=== PATIENT | female | born 1945 | race Caucasian/White ===

== ENCOUNTER 2016-04-12 06:17 | Inpatient (IN) ==
[2016-04-12] MEDS ORDERED: Ringers Solution, Lactated 1,000 ML IVC SCH ×2 (06:45→09:45)
--- NOTE | 2016-04-12 07:15 | Anesthesia Evaluation PreOp ---
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 knee scope,) : No Alcohol Use: none Drug use: none Medications and Allergies Apremilast [Otezla] 30 mg PO DAILY 04/12/16 [History] Aspirin 325 mg PO DAILY 04/12/16 [History] Cyclobenzaprine HCl 10 mg PO TID PRN 04/12/16 [History] Flaxseed Oil [[place]-3 Flaxseed Oil] 1,000 mg PO DAILY 04/12/16 [History] Fluticasone Propionate Nasal [Flonase] 2 spr NS DAILY PRN 04/12/16 [History] Lactobacillus Combination No.8 [Adult Probiotic] 1 cap PO DAILY 04/12/16 [ History] Metoprolol Succinate [Toprol Xl] 50 mg PO DAILY 04/12/16 [History] Multivitamin [Multi-Day Vitamins] 1 each PO DAILY 04/12/16 [History] Oxygen 2 l NS DAILY 04/12/16 [History] Soy Isofl/Blk Coh/Gr Tea/Yerba [[employer] Caplet] 1 each PO DAILY [History] Tramadol HCl [Tramadol HCl] 50 mg PO Q6H PRN 04/12/16 [History] Allergies Amoxicillin [From Augmentin] Allergy (Verified 04/12/16 07:16) Vomiting clavulanic acid [From Augmentin] Allergy (Verified 04/12/16 07:16) Vomiting Erythromycin Base Allergy (Verified 04/12/16 07:16) See Comments chemically induced hepatitis albuterol Adverse Reaction (Verified 04/12/16 07:16) heart racing simvastatin Adverse Reaction (Verified 04/12/16 07:16) Muscle Pain tiotropium [From Spiriva with HandiHaler] Adverse Reaction (Verified 04/12/16 07 :16) heart racing - Meds/Allergy Pre-op Review Medications Reviewed: Yes Allergies Reviewed: Yes Beta Blockers on Current Med List: Yes If Beta Blockers taken, Date/Time (Last Dose taken): @ 05:45 Anesthesia Results - Labs Laboratory Tests 12/18/13 07/29/14 04/05/16 09:16 Unknown 11:10 WBC 21.7 H Hgb 12.2 Hct 39.2 Plt Count 365 Sodium Potassium Chloride Carbon Dioxide BUN POC Creatinine 0.70 Hemoglobin A1c 5.9 04/05/16 11:10 WBC Hgb Hct Plt Count Sodium 138 Potassium 3.3 L Chloride 100 Carbon Dioxide 25 BUN 14 POC Creatinine Hemoglobin A1c Stress 04/02/2016 EF- 70% No iscemia Echo 02/24/12 EF-55-60% No valvular dx No pulm. 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
[2016-04-12] MEDS ORDERED: Levalbuterol Neb 1.25 MG/3 ML AER ONE (07:17)
[2016-04-12] MEDS ORDERED: Clindamycin 900 MG/50 ML 900 MG/50 ML IV.SOLN IVPB ONE (07:29)
[2016-04-12] MEDS ORDERED: *HR* Midazolam HCl 2 MG/2 ML VIAL ONE (07:57)
[2016-04-12] MEDS ORDERED: *HR* Succinylcholine 200 MG/10 ML VIAL IVP ONE (07:57)
[2016-04-12] MEDS ORDERED: *HR* Phenylephrine 10 MG/ML VIAL ONE (07:57)
[2016-04-12] MEDS ORDERED: *HR* FentaNYL (PF) 100 MCG/2 ML VIAL ONE (07:57)
[2016-04-12] MEDS ORDERED: Ondansetron 4 MG/2 ML VIAL ONE (07:57)
[2016-04-12] MEDS ORDERED: *HR* Propofol 200 MG/20 ML VIAL IVP ONE (07:57)
[2016-04-12] MEDS ORDERED: Lidocaine -MPF 4% 5 ML AMPUL ONE (07:57)
[2016-04-12] MEDS ORDERED: Lidocaine -MPF 2% 2 ML VIAL ONE ×2 (07:57)
[2016-04-12] MEDS ORDERED: *HR* Rocuronium Bromide 50 MG/5 ML VIAL ONE ×2 (07:57→10:49)
[2016-04-12] MEDS ORDERED: Dexamethasone 4 MG/ML VIAL ONE (07:57)
--- NOTE | 2016-04-12 08:27 | History & Physical Report ---
Date of Encounter: 04/12/16 Time of Encounter: 08:25 24 Hour HP Update - Instructions Instructions: If the History and Physical is less than 30 days old and was completed prior to A.M. admission and or procedure and has NOT been updated on calendar day of procedure please complete this update prior to performing procedure. - Update Patient reports changes in Medical Condition: No Changes in assessment/condition: No Changes in Medication: No Preop tests/diagnostics Reviewed: Yes Surgery Remains Indicated: Yes Consent for Planned Operative Procedure(s) Verified: Yes - Pre-Operative Checklist Preoperative Checklist Indicated: Yes Prophylactic Antibiotic Ordered: Yes Home Medications Include Beta Sen: Yes Beta Sen Taken Today (Day of Surgery): Yes Beta Sen Taken Yesterday (Day Prior to Surgery): Yes Is VTE Prophylaxis Indicated?: Yes
[2016-04-12] MEDS ORDERED: Lacri-Lube 3.5 GM TUBE ONE (08:31)
[2016-04-12] MEDS ORDERED: Bupivacaine/EPI 1:200k 0.25%PF 10 ML VIAL INFILT ONE (08:43)
[2016-04-12] MEDS ORDERED: Lidocaine/EPI 1:100k 1% 20 ML VIAL ONE (08:43)
[2016-04-12] MEDS ORDERED: *HR* Promethazine 25 MG/ML VIAL IVP PRN (09:43)
[2016-04-12] MEDS ORDERED: *HR* HYDROmorphone (PF) 1 MG/ML SYRINGE IVP PRN (09:43)
[2016-04-12] MEDS ORDERED: Ondansetron 4 MG/2 ML VIAL IVP ONE (09:43)
[2016-04-12] MEDS ORDERED: Levalbuterol Neb 1.25 MG/3 ML IH SCH (10:00)
[2016-04-12] MEDS ORDERED: *HR* HYDROmorphone 2 MG/ML SYRINGE ONE (11:55)
--- NOTE | 2016-04-12 12:18 | OB/GYN Procedure Note ---
OB-GRAIN BLENDER: Procedure - Diagnosis Date of procedure: 04/12/16 Pre-op diagnosis: pelvic prolapse with voiding dysfunction - Procedure Procedure: Attempted robotic sacro converted to open sacrocolpopexy, SOBIA, rectocele Surgeon: Danilo Card Medical Lab Scientist: Nickie Faria Anesthesia Type: General Estimated blood loss (cc): 50 Fluids: crystalloid Procedure Complications: none Specimens collected: none Disposition: PACU Findings: Dense pelvic adhesions Narrative: Patient is 70-year-old female grossly worsening pelvic prolapse causing discomfort as well as voiding dysfunction. His the problems she is having she does desire definitive surgical management and has signed appropriate consent. She was aware of operative risks. She previously tried pessary but had intolerance to Description procedure: Patient was taken to the operating room where general anesthesia was administered and she was prepped and draped in usual sterile fashion. Senior catheter was placed to drain bladder. Degree cystocele and second-degree rectocele with apical vaginal prolapse was noted. 12 mm incision was placed above the umbilicus and 12 mm trochars introduced. Patient was placed in steep Trendelenburg position. A second 12 mm title i assistant port was placed in the right quadrant. 8 mm trochar was placed 8 cm right umbilicus. another 8 mm trochars 8 cm to the left left of the umbilicus and another 8 cm lateral to this and the third 8 mm trocar was placed. The robot was docked using camera and all 3 arms. It was noted there were adhesions between omentum and anterior abdominal wall were quite thin and were taken down easily. This point we tried to gain access to the sacral promontory. There were adhesions between the bowel and the right pelvic sidewall. Because the adhesions was unable to visualize the sacral promontory. Approximately 50 minutes was taken trying to take the adhesions down the ureter on the right was identified. We were unable to make adequate progress and I did not feel that procedure can be safely completed this way therefore decision was made to proceed with laparotomy. Trochars removed and incisions were closed. Scalpel was used to make a Pfannenstiel skin incision was sharply taken down to the fascia which was incised in midline and incision was extended bilaterally. Peritoneum was entered sharply. A large Sarah retractor was placed and the bowel packed out of the operative field. There were adhesions to the bowel and the vaginal cuff these were easily taken down once all the adhesions were taken down and opened the peritoneum over the sacral promontory and the medial longitudinal ligament was identified.2 0 [place] sutures were placed in the medial longitudinal ligament. These were tagged for later usage. Colpassist device was used to manipulate the vagina. The uterus had previously been removed that had the cervix tubes and ovaries. I was able to open that peritoneum and apex of the vagina. Is able to dissect down approximately 4 cm anteriorly on the vagina and 5 cm posteriorly. The [employer] Ypsilon Y mesh was affixed anteriorly and posteriorly to the vaginal cuff with several [place] sutures. The mesh was cut to fit. Detail of the mesh was then taken up to the 2 previously placed 0 [place] sutures in the sacrum. These sutures were tied down vaginal exam was performed showing excellent support. The mesh was retroperitonealized with a running 3-0 Vicryl suture. Irrigation was performed hemostasis was ensured. This point the fascia was closed with 0 loop PDS suture. Again irrigation was performed hemostasis was ensured skin edges were approximated with ladi. Vaginal exam was still performed. This point showed excellent apical support and reduction of the cystocele however rectus it was still present. Check to the posterior fourchette with 1% lidocaine with epinephrine and made a lorenzo-shaped incision. An injected submucosally along the posterior vaginal wall. Metzenbaum scissors were used to undermine the vaginal mucosa and a vertical incision was made. I was able to dissect up to the rectovaginal fascia bilaterally and using several interrupted 2-0 Vicryl sutures was able to reapproximate the rectovaginal fascia from the left to right side. Excess vaginal mucosa was removed and the vagina was reapproximated with 3-0 Vicryl. Hemostasis was ensured. All sponge and instruments counts are correct patient taken recovery room good condition.
--- NOTE | 2016-04-12 12:47 | Anesthesia Evaluation Post Op ---
Date of Encounter: 04/12/16 Time of Encounter: 12:46 - Vital Signs Vital Signs: vss - Lungs Lungs: Clear Ascult./Percussion - Airway Airway: Non-obstructed - Cardiovascular Regular Rate - Mental Status Mental Status: Asleep with brisk response to light stimulation - Pain Pain Scale used: John (Faces) (tolerable) - Nausea Vomiting Nausea Vomiting: Not Present - Hydration Hydration: Senior catheter - Discharge PostOp Status: Transfer Patient to floor
[2016-04-12] MEDS ORDERED: *HR* HYDROcodone/Acet 5/325 mg TABLET PO PRN (13:13)
[2016-04-12] MEDS ORDERED: Fluticasone Propionate Nasal 50 MCG/SPRAY BOTTLE NS PRN (13:13)
[2016-04-12] MEDS ORDERED: Naloxone 0.4 MG/ML INJ IVP PRN (13:13)
[2016-04-12] MEDS: *HR* HYDROmorphone 2 MG/ML SYRINGE IVP PRN ×2 (13:38→18:22)
[2016-04-12] MEDS ORDERED: traMADol 50 MG TABLET PO PRN ×2 (17:43→17:51)
[2016-04-12] MEDS: D5% in 0.45% NACL 1,000 ML IVC SCH (18:21)
[2016-04-12] MEDS: (Apremilast [Otezla] 30 MG) PO SCH (21:29)
[2016-04-13] MEDS: *HR* HYDROmorphone 2 MG/ML SYRINGE IVP PRN ×2 (00:23→06:15)
[2016-04-13] MEDS: D5% in 0.45% NACL 1,000 ML IVC SCH (02:28)
[2016-04-13 03:55] LABS: Basophils % 0.2 %; Hemoglobin 9.2 g/dL (11.5-15.4); Immature Granulocytes % 0.6 % (0-4); Lymphocytes % 8.1 %; Mean Corpuscular HGB Conc 31.7 g/dL (31.6-35.5); Mean Corpuscular Hemoglobin 29.7 pg (28.0-33.3); Mean Corpuscular Volume 93.5 fL (83.0-100.0); Mean Platelet Volume 12.4 fL (9.4-12.4); Monocytes # 3.8 K/mcL (0.0-1.3); Monocytes % 20.1 %; Neutrophils # 13.5 K/mcL (1.6-8.9); Platelet Count 352 K/mcL (140-400); Red Cell Distribution Width 22.3 % (11.5-14.5)
[2016-04-13 04:03] LABS: Lymphocytes # 1.5 K/mcL (0.6-4.6)
[2016-04-13 04:23] LABS: Anisocytosis 2+ (Not Present)
[2016-04-13 04:24] LABS: Ovalocytes 1+ (Not Present); Poikilocytosis 1+ (Not Present); Schistocytes 1+ (Not Present)
[2016-04-13 04:25] LABS: Platelet Estimate Normal (Normal)
--- NOTE | 2016-04-13 08:49 | OB/GYN Progress Note ---
Date of Encounter: 04/13/16 Time of Encounter: 08:47 - Assessment and Plan (1) Pelvic prolapse Current Visit: Yes Status: Acute Pt POD # 1 s/p attempted robotic sacrocolpopexy followed by laparotomy and SOBIA with sacrocolpopexy. Pt doing well post op. C/o incisional pain. Qualifiers: Cystocele location: midline Qualified Code(s): N81.11 - Cystocele, midline (2) Postoperative anemia Current Visit: Yes Status: Acute No evidence of active bleeding. Will recheck h/h in am. Subjective - Subjective Principal diagnosis: s/p sacrocolpopexy and SOBIA Interval history: Pt c/o incision pain and hasn't ambulated much. No n/v and is hungry. No flatus yet. Objective - Vital Signs Latest vital signs: Vital Signs Temp Pulse Resp BP Pulse Ox 04/13/16 07:50 98.5 F 110 12 124/74 96 04/13/16 04:26 98.7 F 97 14 125/79 97 04/13/16 00:42 98.8 F 104 12 115/76 96 04/12/16 20:00 98.4 F 101 18 112/64 97 04/12/16 16:20 98.3 F 94 16 117/70 96 04/12/16 16:10 14 04/12/16 15:00 97.9 F 94 14 101/61 99 04/12/16 14:00 98.3 F 96 14 106/68 95 04/12/16 13:30 98.3 F 92 14 111/67 98 04/12/16 13:00 98.2 F 92 14 118/71 96 04/12/16 12:50 97.6 F 93 14 117/69 94 L 04/12/16 12:40 93 16 113/66 94 L 04/12/16 12:30 96 14 112/66 94 L 04/12/16 12:20 98.5 F 99 12 114/67 100 Intake and Output 04/12/16 04/13/16 04/13/16 23:59 07:59 15:59 Intake Total 50 / 50 1600 / 1600 Output Total 350 / 350 2600 / 2600 Balance -300 / -300 -1000 / -1000 Intake: IV Fluids 1000 / 1000 D5% And 0.45% Nacl 1000 1000 / 1000 Ml Bag 1,000 ML @ 125 mls /hr IVC .Q8H MICHAEL Rx#: [id number] Oral 50 / 50 600 / 600 Output: Catheter 350 / 350 2600 / 2600 - I&O's I&O's: Intake & Output 04/10/16 04/11/16 04/12/16 04/13/16 23:59 23:59 23:59 23:59 Intake Total 100 / 100 1600 / 1600 Output Total 430 / 430 2600 / 2600 Balance -330 / -330 -1000 / -1000 Weight 75.5 kg - Exam Lungs: bilateral: normal Chest: Normal S1, Normal S2 Extremities: Present: normal Abdomen: Present: normal appearance, soft, other (+ BS,) Incision OB: Present: normal, intact - Labs Labs: Abnormal lab results WBC 19.0 K/mcL (4.3-11.1) H 04/13/16 03:44 RBC 3.10 M/mcL (3.82-4.97) L 04/13/16 03:44 Hgb 9.2 g/dL (11.5-15.4) L 04/13/16 03:44 Hct 29.0 % (35.3-44.9) L 04/13/16 03:44 RDW 22.3 % (11.5-14.5) H 04/13/16 03:44 Neutrophils # 13.5 K/mcL (1.6-8.9) H 04/13/16 03:44 Monocytes # 3.8 K/mcL (0.0-1.3) H 04/13/16 03:44 Poikilocytosis 1+ (Not Present) A 04/13/16 03:44 Anisocytosis 2+ (Not Present) A 04/13/16 03:44 Ovalocytes 1+ (Not Present) A 04/13/16 03:44 Schistocytes 1+ (Not Present) A 04/13/16 03:44 Consult Discharge Plan - Plan Referrals: Nick Georges DO [Primary Care Provider] -
[2016-04-13] MEDS ORDERED: Metoprolol XL (24 HR) Succ 50 MG TAB.ER.24H PO SCH ×2 (09:00)
[2016-04-13] MEDS ORDERED: NON-FORMULARY MEDICATION 1 EACH EACH (Oxygen [Oxygen] 2 L) NS SCH (09:00)
[2016-04-13] MEDS: Metoprolol XL (24 HR) Succ 50 MG TAB.ER.24H PO SCH (09:06)
[2016-04-13] MEDS: (Apremilast [Otezla] 30 MG) PO SCH ×2 (09:06→22:01)
[2016-04-13] MEDS: *HR* HYDROmorphone 2 MG TABLET PO PRN ×4 (09:52→23:24)
[2016-04-13] MEDS: Aspirin 325 MG TABLET PO SCH (10:20)
[2016-04-14] MEDS: *HR* HYDROmorphone 2 MG TABLET PO PRN ×5 (04:11→20:46)
[2016-04-14 05:03] LABS: Basophils # 0.1 K/mcL (0.0-0.2); Basophils % 0.3 %; Eosinophils # 0.1 K/mcL (0.0-0.6); Eosinophils % 0.7 %; Hematocrit 28.6 % (35.3-44.9); Hemoglobin 9.2 g/dL (11.5-15.4); Immature Granulocytes % 0.7 % (0-4); Lymphocytes # 2.9 K/mcL (0.6-4.6); Lymphocytes % 14.8 %; Mean Corpuscular HGB Conc 32.2 g/dL (31.6-35.5); Mean Corpuscular Hemoglobin 30.2 pg (28.0-33.3); Mean Corpuscular Volume 93.8 fL (83.0-100.0); Mean Platelet Volume 13.3 fL (9.4-12.4); Monocytes % 15.6 %; Neutrophils # 13.1 K/mcL (1.6-8.9); Platelet Count 369 K/mcL (140-400); Red Blood Count 3.05 M/mcL (3.82-4.97); Red Cell Distribution Width 21.9 % (11.5-14.5); Segmented Neutrophils % 67.9 %
[2016-04-14] MEDS: Metoprolol XL (24 HR) Succ 50 MG TAB.ER.24H PO SCH (07:54)
[2016-04-14] MEDS: Aspirin 325 MG TABLET PO SCH (07:54)
[2016-04-14] MEDS: (Apremilast [Otezla] 30 MG) PO SCH ×2 (07:57→21:01)
--- NOTE | 2016-04-14 14:44 | OB/GYN Progress Note ---
Date of Encounter: 04/14/16 Time of Encounter: 14:42 - Assessment and Plan (1) Pelvic prolapse Current Visit: Yes Status: Acute Pt POD # 2s/p attempted robotic sacrocolpopexy followed by laparotomy and SOBIA with sacrocolpopexy. Pt doing well post op. C/o incisional pain and inabilitly to void. Will increase Dilaudid PO to 2 mg and add Motrin. Encourage ambulation. Qualifiers: Cystocele location: midline Qualified Code(s): N81.11 - Cystocele, midline (2) Postoperative anemia Current Visit: Yes Status: Acute No evidence of active bleeding. H/H is stable (3) Postoperative ileus Current Visit: Yes Status: Acute Pt with active BS, no n/v, will await return of bowel funciton. Encourage ambulationn. Subjective - Subjective Principal diagnosis: s/p laparotomy, sacrocolpopexy and rectocele repair Interval history: Pt still c/o significant incisional pain that is limiting her ability to ambulate. She reports no n/v and has been drinking alot of water. No flatus or BM. Ambulates with assist to BR but still can't void. Objective - Vital Signs Latest vital signs: Vital Signs Temp Pulse Resp BP Pulse Ox 04/14/16 07:50 98.3 F 106 16 121/74 97 04/14/16 04:00 98.5 F 104 18 130/78 97 04/13/16 23:16 99.2 F 106 12 126/69 99 04/13/16 20:18 99.3 F 111 12 141/74 98 Intake and Output 04/13/16 04/14/16 04/14/16 23:59 07:59 15:59 Intake Total 500 / 500 0 / 0 300 / 300 Output Total 1320 / 1320 965 / 965 Balance -820 / -820 -965 / -965 300 / 300 Intake: Oral 500 / 500 0 / 0 300 / 300 Output: Urine 320 / 320 Straight Cath 1000 / 1000 Catheter 965 / 965 Other: Meal Lunch Percent of Meal Consumed 90% Weight 75 kg - I&O's I&O's: Intake & Output 04/11/16 04/12/16 04/13/16 04/14/16 23:59 23:59 23:59 23:59 Intake Total 100 / 100 2100 / 2100 300 / 300 Output Total 430 / 430 5420 / 5420 965 / 965 Balance -330 / -330 -3320 / -3320 -665 / -665 Weight 75.5 kg 75 kg - Exam Lungs: bilateral: normal Chest: Normal S1, Normal S2 Extremities: Present: normal Abdomen: Present: soft, other (appropriate tenderness, incison CDWA) Incision OB: Present: normal, intact - Labs Labs: Abnormal lab results WBC 19.3 K/mcL (4.3-11.1) H 04/14/16 04:29 RBC 3.05 M/mcL (3.82-4.97) L 04/14/16 04:29 Hgb 9.2 g/dL (11.5-15.4) L 04/14/16 04:29 Hct 28.6 % (35.3-44.9) L 04/14/16 04:29 RDW 21.9 % (11.5-14.5) H 04/14/16 04:29 MPV 13.3 fL (9.4-12.4) H 04/14/16 04:29 Neutrophils # 13.1 K/mcL (1.6-8.9) H 04/14/16 04:29 Monocytes # 3.0 K/mcL (0.0-1.3) H 04/14/16 04:29 Poikilocytosis 1+ (Not Present) A 04/13/16 03:44 Anisocytosis 2+ (Not Present) A 04/13/16 03:44 Ovalocytes 1+ (Not Present) A 04/13/16 03:44 Schistocytes 1+ (Not Present) A 04/13/16 03:44 Consult Discharge Plan - Plan Referrals: Nick Georges DO [Primary Care Provider] -
[2016-04-14] MEDS: Ibuprofen 600 MG TABLET PO PRN (18:11)
[2016-04-15] MEDS: Ibuprofen 600 MG TABLET PO PRN ×3 (00:09→20:29)
[2016-04-15] MEDS: Metoprolol XL (24 HR) Succ 50 MG TAB.ER.24H PO SCH (09:16)
[2016-04-15] MEDS: (Apremilast [Otezla] 30 MG) PO SCH ×3 (09:17→20:37)
[2016-04-15] MEDS: Aspirin 325 MG TABLET PO SCH (10:43)
[2016-04-15] MEDS: *HR* HYDROmorphone 2 MG TABLET PO PRN ×3 (12:07→21:01)
[2016-04-15] MEDS: Nitrofurantoin (BID) 100 MG CAPSULE PO SCH (17:19)
--- NOTE | 2016-04-15 17:52 | OB/GYN Progress Note ---
Date of Encounter: 04/15/16 Time of Encounter: 17:50 - Assessment and Plan (1) Pelvic prolapse Current Visit: Yes Status: Acute Pt POD # 3s/p attempted robotic sacrocolpopexy followed by laparotomy and SOBIA with sacrocolpopexy. Pt doing well post op., ileus is resolving with small amt of flatus. Starting to void with slow stream. Qualifiers: Cystocele location: midline Qualified Code(s): N81.11 - Cystocele, midline (2) Postoperative anemia Current Visit: Yes Status: Acute No evidence of active bleeding. H/H is stable (3) Postoperative ileus Current Visit: Yes Status: Acute Pt with active BS, no n/v, will await return of bowel funciton. Encourage ambulationn. Subjective - Subjective Principal diagnosis: s/p exp lap with sacrocolpopexy and post repair Interval history: Still with significant pain, is just this evening starting to void a little bit with slow stream. Has difficulty ambulating without assistance secondary to the pain. Reg diet without flatus. Patient reports: appetite normal Objective - Vital Signs Latest vital signs: Vital Signs Temp Pulse Pulse Resp BP Pulse Ox 04/15/16 16:29 98.2 F 90 16 114/64 98 04/15/16 12:50 98.0 F 104 16 119/75 98 04/15/16 12:14 92 16 04/15/16 09:15 92 04/15/16 08:25 97.6 F 107 16 118/56 96 04/15/16 04:00 97.7 F 95 12 115/66 97 04/15/16 00:14 97.8 F 110 16 132/73 04/14/16 21:45 98.4 F 118 12 117/71 97 04/14/16 21:13 16 Intake and Output 04/15/16 04/15/16 04/15/16 07:59 15:59 23:59 Intake Total 400 / 400 Output Total 500 / 500 400 / 400 Balance -100 / -100 -400 / -400 Intake: Oral 400 / 400 Output: Urine 400 / 400 Catheter 500 / 500 Other: Weight 74.4 kg Patient Weight 04/15/16 23:59 Weight 74.4 kg - I&O's I&O's: Intake & Output 04/12/16 04/13/16 04/14/16 04/15/16 23:59 23:59 23:59 23:59 Intake Total 100 / 100 2100 / 2100 840 / 840 400 / 400 Output Total 430 / 430 5420 / 5420 2565 / 2565 900 / 900 Balance -330 / -330 -3320 / -3320 -1725 / -1725 -500 / -500 Weight 75.5 kg 75 kg 74.4 kg - Exam Lungs: bilateral: normal Chest: Normal S1, Normal S2 Extremities: Present: normal Abdomen: Present: soft, other (pos BS) Incision OB: Present: normal, intact - Labs Labs: Abnormal lab results WBC 19.3 K/mcL (4.3-11.1) H 04/14/16 04:29 RBC 3.05 M/mcL (3.82-4.97) L 04/14/16 04:29 Hgb 9.2 g/dL (11.5-15.4) L 04/14/16 04:29 Hct 28.6 % (35.3-44.9) L 04/14/16 04:29 RDW 21.9 % (11.5-14.5) H 04/14/16 04:29 MPV 13.3 fL (9.4-12.4) H 04/14/16 04:29 Neutrophils # 13.1 K/mcL (1.6-8.9) H 04/14/16 04:29 Monocytes # 3.0 K/mcL (0.0-1.3) H 04/14/16 04:29 Poikilocytosis 1+ (Not Present) A 04/13/16 03:44 Anisocytosis 2+ (Not Present) A 04/13/16 03:44 Ovalocytes 1+ (Not Present) A 04/13/16 03:44 Schistocytes 1+ (Not Present) A 04/13/16 03:44 Consult Discharge Plan - Plan Referrals: Nick Georges DO [Primary Care Provider] -
[2016-04-16] MEDS: *HR* HYDROmorphone 2 MG TABLET PO PRN ×3 (01:11→09:38)
--- NOTE | 2016-04-16 07:38 | Discharge Summary ---
Date of Encounter: 04/16/16 Time of Encounter: 07:39 - Discharge Diagnosis (1) Pelvic prolapse Priority: Primary Status: Acute Comments: Doing well, will d/c home. Qualifiers: Prolapse type: cystocele Cystocele location: midline Qualified Code(s): N81.11 - Cystocele, midline (2) Postoperative anemia Priority: Secondary Status: Resolved (3) Postoperative ileus Priority: Secondary Status: Resolved Code(s): K91.3 - Postprocedural intestinal obstruction - Discharge Medications Prescriptions: HYDROmorphone [Dilaudid] 2 mg PO Q4HR PRN #40 tablet PRN Reason: post op pain HYDROmorphone [Dilaudid] 1 mg IVP Q4HR PRN #40 syringe PRN Reason: post op pain Home Medications: Apremilast [Otezla] 30 mg PO DAILY 04/12/16 [History] Aspirin 325 mg PO DAILY 04/12/16 [History] Cyclobenzaprine HCl 10 mg PO TID PRN 04/12/16 [History] Flaxseed Oil [[place]-3 Flaxseed Oil] 1,000 mg PO DAILY 04/12/16 [History] Fluticasone Propionate Nasal [Flonase] 2 spr NS DAILY PRN 04/12/16 [History] Lactobacillus Combination No.8 [Adult Probiotic] 1 cap PO DAILY 04/12/16 [ History] Metoprolol Succinate [Toprol Xl] 50 mg PO DAILY 04/12/16 [History] Multivitamin [Multi-Day Vitamins] 1 each PO DAILY 04/12/16 [History] Oxygen 2 l NS DAILY 04/12/16 [History] Soy Isofl/Blk Coh/Gr Tea/Yerba [[employer] Caplet] 1 each PO DAILY [History] Tramadol HCl [Tramadol HCl] 50 mg PO Q6H PRN 04/12/16 [History] HYDROmorphone [Dilaudid] 1 mg IVP Q4HR PRN #40 syringe 04/16/16 [Rx] HYDROmorphone [Dilaudid] 2 mg PO Q4HR PRN #40 tablet 04/16/16 [Rx] Allergies/Adverse Reactions: Allergies Amoxicillin [From Augmentin] Allergy (Verified 04/12/16 07:16) Vomiting clavulanic acid [From Augmentin] Allergy (Verified 04/12/16 07:16) Vomiting Erythromycin Base Allergy (Verified 04/12/16 07:16) See Comments chemically induced hepatitis albuterol Adverse Reaction (Verified 04/12/16 07:16) heart racing simvastatin Adverse Reaction (Verified 04/12/16 07:16) Muscle Pain tiotropium [From Spiriva with HandiHaler] Adverse Reaction (Verified 04/12/16 07 :16) heart racing Data Procedures and tests throughout hospitalization: Laboratory Tests 04/13/16 04/14/16 03:44 04:29 WBC 19.0 H 19.3 H RBC 3.10 L 3.05 L Hgb 9.2 L 9.2 L Hct 29.0 L 28.6 L MCV 93.5 93.8 MCH 29.7 30.2 MCHC 31.7 32.2 RDW 22.3 H 21.9 H Plt Count 352 369 MPV 12.4 13.3 H Immature Gran % 0.6 0.7 Seg Neutrophils % 71.0 67.9 Lymphocytes % 8.1 14.8 Monocytes % 20.1 15.6 Eosinophils % 0.0 0.7 Basophils % 0.2 0.3 Neutrophils # 13.5 H 13.1 H Lymphocytes # 1.5 2.9 Monocytes # 3.8 H 3.0 H Eosinophils # 0.0 0.1 Basophils # 0.0 0.1 Platelet Estimate Normal Poikilocytosis 1+ A Anisocytosis 2+ A Ovalocytes 1+ A Schistocytes 1+ A - Impressions Doing well, voiding without difficulty! Taking regular diet with + flatus, strength is better and can now get up on her own to BR. She states she is ready for d/c home. Date of admission: 04/13/16 11:08 Primary care physician: Mingo Mcgee - Patient Status Disposition: Home, Self-Care Condition: Good Overall status at discharge: patient is back to baseline - Discharge Instructions Follow Up With: Danilo Card MD [Partnered Physician] - Additional Instructions: F/u Tue or Tuesday with nurse for staple removal, f/u with me in 2 weeks - Diet and Activity Activity: increase activity as tolerated Diet: advance to your usual diet Hospital Course DOG GROOMER Time Attestation: Total time spent providing and/or coordinating discharge services: Exam - Constitutional Vitals: Temp Pulse Resp BP Pulse Ox 98.0 F 71 12 115/62 97 04/16/16 04:59 04/16/16 04:59 04/16/16 05:12 04/16/16 04:59 04/16/16 04:59 General appearance IM: A&O X 3 - Respiratory Respiratory exam: Present: CTAB - Cardiovascular Cardiovascular exam IM: Present: RRR - GI/Abdominal GI/Abdominal exam IM: normal bowel sounds Incision: normal, intact - Neurological Exam Neurological exam: oriented X3 - VTE Documentation of Mechanical Device: Intermittent pneumatic compression device
[2016-04-16 07:45] VITALS: BP 121/76
[2016-04-16] MEDS: (Apremilast [Otezla] 30 MG) PO SCH (09:39)
[2016-04-16] MEDS: Metoprolol XL (24 HR) Succ 50 MG TAB.ER.24H PO SCH (09:39)
[2016-04-16] MEDS: Nitrofurantoin (BID) 100 MG CAPSULE PO SCH (09:40)
[2016-04-16] MEDS: Aspirin 325 MG TABLET PO SCH (09:40)
== END 2016-04-16 10:47 | disposition home or self-care (01) | DRG 748 ==
LOC: SAMDAY 06:17 → 1NENUOBS 13:12
PROVIDERS: ADMIT Obstetrics & Gynecology; ATTEND Obstetrics & Gynecology

== ENCOUNTER 2018-09-04 20:10 | Inpatient (IN) ==
--- NOTE | 2018-09-04 20:26 | Emergency Department Note ---
Disposition Clinical Impression: Lumbar radiculopathy, Sciatica, Thoracic back pain, H/O kyphoplasty, History of abdominal aortic aneurysm, Anemia Disposition: Still a Patient Referrals: Nick Georges DO [Primary Care Provider] - Forms: ED Satisfaction Letter Time of Disposition: 01:41 General Adult HPI - General Chief complaint: ED Back Pain/Injury Stated complaint: back pain Time Seen by Provider: 09/04/18 20:25 Source: patient, EMS Limitations: no limitations - History of Present Illness HPI Narrative: 72-year-old female reports to the emergency department with concerns for low back pain. She was bending over at her refrigerator and heard a pop and had sudden low back pain. Notably she has multi lumbar compression fractures as well as lower thoracic compression fractures and had recent kyphoplasty. The patient denies falling down. She denies head pain neck pain chest pain shortness breath or abdominal pain. She is not anticoagulated. She reports she has a stable abdominal aortic aneurysm which is not significantly enlarged. She does not describe syncope. The pain she is experiencing is associated with movement in the low back. There is no history of acute bowel or bladder dysfunction. No numbness or weakness in legs or saddle anesthesia. The patient describes sciatica bilaterally. She is been taking her usual oral pain medications which have not been helpful she cannot walk currently. No rashes fevers or any other acute complaint or concern. Pain Scale: 9 - Related Data Home Medications Medication Instructions Recorded Confirmed Apremilast [Otezla] 30 mg PO BID 08/16/18 09/04/18 Aspirin [Lo-Dose Aspirin EC] 81 mg PO DAILY 08/16/18 09/04/18 Bisacodyl [Woman's Laxative] 5 mg PO HS PRN 08/16/18 09/04/18 Cyclobenzaprine HCl 10 mg PO TID PRN 08/16/18 09/04/18 Ipratropium Neb [Atrovent Neb] 0.5 mg IH Q6HR PRN 08/16/18 09/04/18 Lactobacillus Combination No.8 1 cap PO DAILY 08/16/18 09/04/18 [Adult Probiotic] Magnesium 250 mg PO DAILY 08/16/18 09/04/18 Metoprolol Succinate [Toprol Xl] 50 mg PO DAILY 08/16/18 09/04/18 Multivitamin [One Daily] 1 tab PO DAILY 08/16/18 09/04/18 Tramadol HCl [Ultram] 50 mg PO QID PRN 08/16/18 09/04/18 Allergies Allergy/AdvReac Type Severity Reaction Status Date / Time Erythromycin Base Allergy See Verified 08/16/18 13:34 Comments albuterol AdvReac heart Verified 08/16/18 13:34 racing Amoxicillin [From Augmentin] AdvReac Vomiting Verified 08/16/18 13:34 clavulanic acid AdvReac Diarrhea Verified 08/16/18 13:34 [From Augmentin] simvastatin AdvReac Muscle Pain Verified 08/16/18 13:34 Ilriajw-Edi-Blj Reductase AdvReac muscle Verified 08/16/18 13:34 Inhibitor spasms [Statins] tiotropium AdvReac rhinnitis Verified 08/16/18 13:34 [From Spiriva with HandiHaler] All systems ED: reviewed and negative except as stated. Past Medical History - Past Medical History Medical history: Reports: arthritis, COPD, fibromyalgia, GERD, hypertension, thyroid disease, TIA, other Surgical history: Reports: breast surgery, hysterectomy, orthopedic, other, sinus surgery, other Psychiatric history: Reports: depression - Social History Smoking Status: Former smoker Smokeless Tobacco Status: No Alcohol use: Reports: none Drug use: Reports: none Physical Exam - General Limitations: no limitations General appearance: alert, in no apparent distress - Head Head exam: atraumatic, normocephalic, normal inspection - Eye Eye exam: Present: normal appearance, PERRL, EOMI - ENT ENT exam: normal exam, normal oropharynx, mucous membranes moist, TM's normal bilaterally, normal external ear exam - Neck Neck exam: Present: full ROM, trachea midline - Chest Chest inspection: Present: symmetric chest wall rise. Absent: tenderness - Respiratory Respiratory exam: Present: normal lung sounds bilaterally. Absent: respiratory distress, prolonged expiratory phase - Cardiovascular Cardiovascular exam: Present: regular rate, normal rhythm, normal heart sounds - Abdominal Exam Abdominal exam: Present: soft, Non-Tender, normal bowel sounds. Absent: tenderness, distention, guarding, rebound, rigidity - Extremities Exam Extremities exam: Present: normal inspection, full ROM, normal capillary refill. Absent: tenderness, pedal edema, joint swelling, calf tenderness - Expanded Lower Extremity Exam Neurovascular/Tendon exam: Present: normal capillary refill. Absent: motor deficit, sensory deficit, tendon deficit, extremity cold to touch, pallor - Back Exam Back exam: Present: normal inspection, full ROM, vertebral tenderness, straight leg raise (R), straight leg raise (L), other (Postsurgical wounds clean dry in tact without fluctuance redness swelling crepitance of the skin no blackening or discharge.). Absent: tenderness, CVA tenderness (R), CVA tenderness (L) - Neurological Exam Neurological exam: Present: alert, oriented X3 - Psychiatric Psychiatric exam: Present: normal affect, normal mood - Skin Skin exam: Present: warm, dry, intact, normal color Course Vital Signs Temperature 98.8 F 09/04/18 20:14 Pulse Rate 90 09/04/18 20:14 Respiratory Rate 18 09/04/18 20:14 Blood Pressure 108/86 09/04/18 20:14 O2 Sat by Pulse Oximetry 99 09/04/18 20:14 Temperature 98.8 F 09/04/18 20:14 Pulse Rate 90 09/05/18 01:10 Respiratory Rate 18 09/05/18 01:10 Blood Pressure 116/58 09/05/18 01:10 O2 Sat by Pulse Oximetry 98 09/05/18 01:10 Oxygen Delivery Oxygen Delivery Nasal Cannula Medical Decision Making - MDM Narrative Medical decision making narrative: The patient has a history of thoracic and lumbar compression fractures with recent kyphoplasty. She has been taking her home medication but is had persistent pain is now unable to walk. CT scan of her thoracic and lumbar: Reveal no acute fracture. Basic laboratory studies were obtained and show anemia which appears to be chronic. The patient's inflammatory markers are essentially negative. The patient denies acute neurologic changes. There is no history of bowel or bladder dysfunction acute which the legs or saddle anesthesia she declines rectal examination. The patient has known history of aortic abdominal aneurysm. She describes back pain and states that her mirror painter and physician performing kyphoplasty felt it was unusual for her to have persistent pain after her treatment. At this point she appears to have failed outpatient pain management and is currently unable to walk. As a precaution CTA abdomen has been ordered to evaluate further to ensure no retroperitoneal or intra-abdominal component responsible for her back pain. She is been treated with Dilaudid and emergency department as well as fentanyl and remained stable. I suspect the patient will require hospitalization for pain management and possible rehabilitation. Shift change, I discussed the case with Dr. Ceja who will assume care and determine final diagnosis and disposition. - Lab Data Lab results reviewed: Yes I reviewed the patient's lab results. Result diagrams: 09/04/18 23:01 09/04/18 23:01 Lab Results 09/04/18 09/04/18 09/04/18 Range/Units 23:01 23:01 23:01 WBC 11.3 H (4.3-11.1) K/mcL RBC 3.12 L (3.82-4.97) M/mcL Hgb 9.2 L (11.5-15.4) g/dL Hct 29.4 L (35.3-44.9) % MCV 94.2 (83.0-100.0) fL MCH 29.5 (28.0-33.3) pg MCHC 31.3 L (31.6-35.5) g/dL RDW 22.9 H (11.5-14.5) % Plt Count 434 H (140-400) K/mcL MPV 13.2 H (9.4-12.4) fL Immature Gran % 0.4 (0-4) % Seg Neutrophils % 58.4 % Lymphocytes % 22.3 % Monocytes % 14.6 % Eosinophils % 3.4 % Basophils % 0.9 % Neutrophils # 6.6 (1.6-8.9) K/mcL Lymphocytes # 2.5 (0.6-4.6) K/mcL Monocytes # 1.7 H (0.0-1.3) K/mcL Eosinophils # 0.4 (0.0-0.6) K/mcL Basophils # 0.1 (0.0-0.2) K/mcL Sodium 139 (136-145) mEq/L Potassium 3.8 (3.5-5.1) mEq/L Chloride 105 (98-107) mEq/L Carbon Dioxide 28 (23-29) mEq/L BUN 10 (8-23) mg/dL Creatinine 0.49 L (0.60-1.20) mg/dL Est GFR ( Amer) > 60 (> 60) Est GFR (Non-Af Amer) > 60 (> 60) BUN/Creatinine Ratio 20 (6-26) Glucose 109 H (70-105) mg/dL Calculated Osmolality 288 (280-300) Calcium 9.4 (8.6-10.3) mg/dL Total Bilirubin 0.7 (0.3-1.0) mg/dL Direct Bilirubin 0.1 (0.0-0.2) mg/dL Indirect Bilirubin 0.6 (0.0-1.2) mg/dL AST 18 (13-39) Units/L ALT 9 (7-52) Units/L Alkaline Phosphatase 110 H (34-104) Units/L C-Reactive Protein < 5 (Less than 10) mg/L Serum Total Protein 6.8 (6.4-8.9) g/dL Albumin 4.0 (3.5-5.7) g/dL Globulin 2.8 (2.4-3.5) g/dL Albumin/Globulin Ratio 1.4 (1.1-2.2) Lipase 6 L (11-82) Units/L - Radiology Data Radiology results reviewed: Yes I reviewed the patient's radiology results.
[2018-09-04] MEDS ORDERED: *HR* HYDROmorphone (PF) 1 MG/ML SYRINGE IM ONE (20:53)
[2018-09-04] MEDS ORDERED: Ondansetron ODT 4 MG TAB.RAPDIS SL ONE (20:54)
[2018-09-04] MEDS ORDERED: Isovue-370 500 ML BOTTLE IVP ONE (22:49)
[2018-09-04] MEDS ORDERED: methylPREDNISolone 125 MG/2 ML VIAL IVP ONE (22:50)
[2018-09-04] MEDS ORDERED: 0.9 % Sodium Chloride 1,000 ML IVC ONE (22:51)
[2018-09-04 23:24] LABS: Basophils # 0.1 K/mcL (0.0-0.2); Basophils % 0.9 %; Eosinophils # 0.4 K/mcL (0.0-0.6); Eosinophils % 3.4 %; Hematocrit 29.4 % (35.3-44.9); Hemoglobin 9.2 g/dL (11.5-15.4); Immature Granulocytes % 0.4 % (0-4); Lymphocytes # 2.5 K/mcL (0.6-4.6); Lymphocytes % 22.3 %; Mean Corpuscular HGB Conc 31.3 g/dL (31.6-35.5); Mean Corpuscular Hemoglobin 29.5 pg (28.0-33.3); Mean Corpuscular Volume 94.2 fL (83.0-100.0); Mean Platelet Volume 13.2 fL (9.4-12.4); Monocytes # 1.7 K/mcL (0.0-1.3); Monocytes % 14.6 %; Neutrophils # 6.6 K/mcL (1.6-8.9); Platelet Count 434 K/mcL (140-400); Red Blood Count 3.12 M/mcL (3.82-4.97); Red Cell Distribution Width 22.9 % (11.5-14.5); Segmented Neutrophils % 58.4 %; White Blood Count 11.3 K/mcL (4.3-11.1)
[2018-09-04 23:44] LABS: Alanine Aminotransferase 9 Units/L (7-52); Albumin/Globulin Ratio 1.4 (1.1-2.2); Alkaline Phosphatase 110 Units/L (34-104); Aspartate Amino Transferase 18 Units/L (13-39); BUN/Creatinine Ratio 20 (6-26); Bilirubin,Direct 0.1 mg/dL (0.0-0.2); Bilirubin,Indirect 0.6 mg/dL (0.0-1.2); Bilirubin,Total 0.7 mg/dL (0.3-1.0); Blood Urea Nitrogen 10 mg/dL (8-23); Calcium 9.4 mg/dL (8.6-10.3); Carbon Dioxide 28 mEq/L (23-29); Chloride 105 mEq/L (98-107); Globulin 2.8 g/dL (2.4-3.5); Glucose 109 mg/dL (70-105); Lipase 6 Units/L (11-82); Osmolality,Calculated 288 (280-300); Potassium 3.8 mEq/L (3.5-5.1); Sodium 139 mEq/L (136-145); Total Protein 6.8 g/dL (6.4-8.9); eGFR For African Americans > 60 (> 60); eGFR For Non-African Americans > 60 (> 60)
[2018-09-05] MEDS ORDERED: *HR* FentaNYL (PF) 100 MCG/2 ML VIAL IVP ONE (01:15)
[2018-09-05 02:24] LABS: Bilirubin,Urine Negative (Negative); Blood,Urine Negative (Negative); Clarity,Urine Clear (Clear); Color,Urine Yellow (Yellow); Glucose,Urine (UA) Normal (Normal); Ketones,Urine Negative (Negative); Leukocyte Esterase,Urine Negative (Negative); Nitrite,Urine Negative (Negative); Protein,Urine Negative (Neg-Trace); Specific Gravity,Urine 1.011 (1.010-1.025); Urobilinogen,Urine Normal (Normal)
[2018-09-05] MEDS ORDERED: *HR* HYDROmorphone (PF) 1 MG/ML SYRINGE IVP ONE (05:37)
[2018-09-05] MEDS ORDERED: *HR* HYDROmorphone (PF) 1 MG/ML SYRINGE IVP PRN (08:41)
[2018-09-05] MEDS ORDERED: Ipratropium Neb 0.5 MG NEBULIZER IH PRN (08:51)
--- NOTE | 2018-09-05 08:53 | Internal Med History&Physical ---
<Mindy Llanos - Last Filed: 09/05/18 08:47> Date of Encounter: 09/05/18 Time of Encounter: 08:47 Internal Medicine - H&P: HPI Chief complaint: back pain Admitted From: Emergency Dept Plans for Post Hospital Care: Home History of present illness: Ms. Case is a 72 year old female with PMHx of HTN, pulmonary fibrosis, TIA, HLD, COPD, psoriatic arthritis, osteoarthritis, fiibromyalgia, osteoporosis, history of compression fractures with recent kyphoplasty last month. Patient was at home in her usual state last night when she went to the fridge and bent over to get something and felt a shooting pain in her back. She states this pain was so bad that she could barely walk or move. When this happened, she tried to see if the pain would get better, but it continued to get worse. She states her pain is as bad as 10/10 and is located in her lower lumbar area. She denies bowel or bladder incontinence. she denies nausea, vomiting, diarrhea, fevers, chills, chest pain, shortness of breath, hematochezia, melena, hematuria. Past Med Surg Social Fam HX - Past Medical History Medical history: arthritis, COPD, fibromyalgia, GERD, hypertension, thyroid disease, TIA, other Additional medical history: irregular heart rate, intersitial fibrosis, mild pulmonary HTN, emphysema, psoriasis, PACs, home o2, Psychiatric history: depression - Past Surgical History Surgical History: breast surgery, hysterectomy, orthopedic, other, sinus surgery, other Additional surgical history: low back surgery, sinus surgery x2, right knee, neetu or removal from breast, no stents with angioplasty. - Social History Smoking Status: Former smoker Smokeless Tobacco Status: No Alcohol use: none Drug use: none - Family History Brother Living Status: Hx Family Cardiac Disorders: Yes (afib) Hx Family Cancer: Yes (leukemia, colon cancer , lung) Hx Family Endocrine Disorder: Yes (diabetes) Sister Hx Family Cardiac Disorders: Yes Internal Medicine - H&P: Meds Apremilast [Otezla] 30 mg PO BID 08/16/18 [History] Aspirin [Lo-Dose Aspirin EC] 81 mg PO DAILY 08/16/18 [History] Bisacodyl [Woman's Laxative] 5 mg PO HS PRN 08/16/18 [History] Cyclobenzaprine HCl 10 mg PO TID PRN 08/16/18 [History] Ipratropium Neb [Atrovent Neb] 0.5 mg IH Q6HR PRN 08/16/18 [History] Lactobacillus Combination No.8 [Adult Probiotic] 1 cap PO DAILY 08/16/18 [History] Magnesium 250 mg PO DAILY 08/16/18 [History] Metoprolol Succinate [Toprol Xl] 50 mg PO DAILY 08/16/18 [History] Multivitamin [One Daily] 1 tab PO DAILY 08/16/18 [History] Tramadol HCl [Ultram] 50 mg PO QID PRN 08/16/18 [History] Allergy/AdvReac Type Severity Reaction Status Date / Time Erythromycin Base Allergy See Verified 08/16/18 13:34 Comments albuterol AdvReac heart Verified 08/16/18 13:34 racing Amoxicillin [From Augmentin] AdvReac Vomiting Verified 08/16/18 13:34 clavulanic acid AdvReac Diarrhea Verified 08/16/18 13:34 [From Augmentin] simvastatin AdvReac Muscle Pain Verified 08/16/18 13:34 Mzfaozw-Jrd-Uii Reductase AdvReac muscle Verified 08/16/18 13:34 Inhibitor spasms [Statins] tiotropium AdvReac rhinnitis Verified 08/16/18 13:34 [From Spiriva with HandiHaler] All Systems PM: A 10-system review of systems was performed and is negative for pertinent findings except as documented above in the HPI. - Constitutional Constitutional: as per HPI - EENT Eyes: as per HPI Ears: as per HPI Nose, mouth and throat: as per HPI - Breasts Breasts: as per HPI - Cardiovascular Cardiovascular ROS IM: as per HPI - Respiratory Respiratory: as per HPI - Gastrointestinal Gastrointestinal: as per HPI - Genitourinary Genitourinary: as per HPI Menstruation: as per HPI - Musculoskeletal Musculoskeletal ROS IM: as per HPI - Integumentary Integumentary IM: as per HPI - Neurological Neurological ROS: as per HPI - Psychiatric Psychiatric: as per HPI - Endocrine Endocrine IM: as per HPI - Hematologic/Lymphatic Hematologic/Lymphatic: as per HPI - Allergic/Immunologic Allergic/Immunologic: as per HPI - Constitutional Vitals: Temp Pulse Resp BP Pulse Ox 98.8 F 100 18 120/70 98 09/04/18 20:14 06/11/19 06:14 09/05/18 06:14 09/05/18 06:14 09/05/18 06:14 Exam: alert and oriented x3, pleasant, no acute distress Internal Med - H&P Results - Labs CBC & Chem 7: 09/04/18 23:01 09/04/18 23:01 Labs: Short CBC 09/04/18 Range/Units 23:01 WBC 11.3 H (4.3-11.1) K/mcL Hgb 9.2 L (11.5-15.4) g/dL Hct 29.4 L (35.3-44.9) % Plt Count 434 H (140-400) K/mcL Neutrophils # 6.6 (1.6-8.9) K/mcL BMP 09/04/18 23:01 Sodium 139 Potassium 3.8 Chloride 105 Carbon Dioxide 28 BUN 10 Creatinine 0.49 L Glucose 109 H Calcium 9.4 Liver Function 09/04/18 Range/Units 23:01 Total Bilirubin 0.7 (0.3-1.0) mg/dL Direct Bilirubin 0.1 (0.0-0.2) mg/dL AST 18 (13-39) Units/L ALT 9 (7-52) Units/L Alkaline Phosphatase 110 H (34-104) Units/L Albumin 4.0 (3.5-5.7) g/dL Urine 09/05/18 Range/Units 02:17 Urine Color Yellow (Yellow) Urine Clarity Clear (Clear) Urine pH 7.0 (5.0-8.0) pH Units Ur Specific [place] 1.011 (1.010-1.025) Urine Protein Negative (Neg-Trace) mg/dL Urine Glucose (UA) Normal (Normal) mg/dL - Impressions ITS Impressions Lumbar Spine CT 09/04/18 20:54 IMPRESSION: No acute osseous abnormality of the thoracic or lumbar spine. Multilevel degenerative changes of the thoracic and lumbar spine are similar to prior. D/ / 09/04/2018 22:30:17 Daniella Michel MD / earnold Interpreting Provider: Daniella Michel MD Thoracic Spine CT 09/04/18 20:55 IMPRESSION: No acute osseous abnormality of the thoracic or lumbar spine. Multilevel degenerative changes of the thoracic and lumbar spine are similar to prior. D/ / 09/04/2018 22:30:17 Daniella Michel MD / earcarola Interpreting Provider: Daniella Michel MD Abdomen/Pelvis CTA 09/05/18 22:49 IMPRESSION: Unremarkable CTA of the abdomen and pelvis. Right basilar infiltrate representing atelectasis versus pneumonia. Uncomplicated colonic diverticula. D/ / Harrison Finch / Harrison Finch Interpreting Provider: Harrison Finch - Assessment and Plan (1) Status post kyphoplasty Current Visit: No Status: Resolved Assessment and plan: Hx of comparession fracture of L1,L3,L4. Had recent repair of compression fracture By Dr. Guevara on 08/16. Was at home and bent over to picks something up and had debilitating pain ever since. CT of the thoracic and lumbar spine showed no osseous abnormality. There were multi level degenerative changes. Plan: pain control with dilaudid zofran PRN Consult to pain management team-appreciate recommendations. (2) Anemia Current Visit: Yes Status: Chronic Assessment and plan: History of chronic anemia. Hg at baseline. continue to monitor. Qualifiers: Anemia type: unspecified type Qualified Code(s): D64.9 - Anemia, unspecified (3) Leukocytosis Current Visit: Yes Status: Acute Assessment and plan: leukocytosis of 11.3. suspect likely reactive secondary to acute pain. patient not meeting sepsis criteria at this time. denies fevers/chills/urinary symptoms. Plan: continue to monitor for signs of infection. Hold Otezla for now. Qualifiers: Leukocytosis type: unspecified Qualified Code(s): D72.829 - Elevated white blood cell count, unspecified (4) DVT prophylaxis Current Visit: Yes Status: Acute Assessment and plan: Heparin SQ - Time Spent With Patient Total time spent is greater than 50% in coordination of care (as documented) at patient's floor/unit and/or counseling patient: <Danii Porter - Last Filed: 09/06/18 08:34> Date of Encounter: 09/05/18 Internal Medicine - H&P: HPI History of present illness: Ms. Case is a 72 year old female All Systems PM: A 10-system review of systems was performed and is negative for pertinent findings except as documented above in the HPI. - Constitutional Vitals: Temp Pulse Resp BP Pulse Ox 98.3 F 89 16 118/64 97 09/06/18 06:28 09/06/18 06:28 09/06/18 06:28 09/06/18 06:28 09/06/18 06:28 Internal Med - H&P Results - Labs CBC & Chem 7: 09/04/18 23:01 09/04/18 23:01 - Impressions ITS Impressions Lumbar Spine CT 09/04/18 20:54 IMPRESSION: No acute osseous abnormality of the thoracic or lumbar spine. Multilevel degenerative changes of the thoracic and lumbar spine are similar to prior. D/ / 09/04/2018 22:30:17 Daniella Michel MD / charis Interpreting Provider: Daniella Michel MD Thoracic Spine CT 09/04/18 20:55 IMPRESSION: No acute osseous abnormality of the thoracic or lumbar spine. Multilevel degenerative changes of the thoracic and lumbar spine are similar to prior. D/ / 09/04/2018 22:30:17 Daniella Michel MD / charis Interpreting Provider: Daniella Michel MD Abdomen/Pelvis CTA 09/05/18 22:49 IMPRESSION: Unremarkable CTA of the abdomen and pelvis. Right basilar infiltrate representing atelectasis versus pneumonia. Uncomplicated colonic diverticula. D/ / Harrison Finch / Harrison Finch Interpreting Provider: Harrison Finch - Time Spent With Patient Total time spent is greater than 50% in coordination of care (as documented) at patient's floor/unit and/or counseling patient: - Attending Attestation I performed a history and physical examination of the patient and discussed his management with the resident. I reviewed the residents note and agree with the documented findings and plan of care.
[2018-09-05] MEDS ORDERED: Naloxone 0.4 MG/ML INJ IVP PRN (08:55)
[2018-09-05] MEDS ORDERED: Ondansetron 4 MG/2 ML VIAL IVP PRN (08:55)
[2018-09-05] MEDS ORDERED: Acetaminophen 325 MG TABLET PO PRN (08:55)
[2018-09-05] MEDS: Aspirin Enteric Coated 81 MG Tablet PO SCH (09:28)
[2018-09-05] MEDS: Lactobacillus 1 EACH CAP.SPRINK PO SCH (09:28)
[2018-09-05] MEDS: Metoprolol XL (24 HR) Succ 50 MG TAB.ER.24H PO SCH (10:30)
[2018-09-05] MEDS: *HR* Heparin 5,000 UNIT/ML VIAL SQ SCH (17:28)
[2018-09-05] MEDS: *HR* OxyCODONE Immed Rel 5 MG TABLET PO PRN ×2 (17:50→23:41)
[2018-09-06] MEDS: *HR* Heparin 5,000 UNIT/ML VIAL SQ SCH ×2 (05:41→17:30)
[2018-09-06] MEDS: *HR* OxyCODONE Immed Rel 5 MG TABLET PO PRN ×4 (05:41→23:15)
[2018-09-06 08:52] LABS: Alanine Aminotransferase 9 Units/L (7-52); Albumin 3.8 g/dL (3.5-5.7); Albumin/Globulin Ratio 1.2 (1.1-2.2); Alkaline Phosphatase 106 Units/L (34-104); Aspartate Amino Transferase 16 Units/L (13-39); BUN/Creatinine Ratio 21 (6-26); Bilirubin,Total 0.7 mg/dL (0.3-1.0); Blood Urea Nitrogen 11 mg/dL (8-23); Calcium 9.5 mg/dL (8.6-10.3); Carbon Dioxide 30 mEq/L (23-29); Chloride 103 mEq/L (98-107); Globulin 3.2 g/dL (2.4-3.5); Glucose 125 mg/dL (70-105); Osmolality,Calculated 291 (280-300); Potassium 3.8 mEq/L (3.5-5.1); Sodium 140 mEq/L (136-145); eGFR For African Americans > 60 (> 60); eGFR For Non-African Americans > 60 (> 60)
[2018-09-06 08:56] LABS: Basophils % 0.2 %; Eosinophils # 0.1 K/mcL (0.0-0.6); Eosinophils % 0.5 %; Hematocrit 31.4 % (35.3-44.9); Hemoglobin 9.7 g/dL (11.5-15.4); Immature Granulocytes % 0.5 % (0-4); Lymphocytes # 2.7 K/mcL (0.6-4.6); Lymphocytes % 20.3 %; Mean Corpuscular HGB Conc 30.9 g/dL (31.6-35.5); Mean Corpuscular Hemoglobin 29.6 pg (28.0-33.3); Mean Corpuscular Volume 95.7 fL (83.0-100.0); Mean Platelet Volume 13.5 fL (9.4-12.4); Monocytes % 15.4 %; Neutrophils # 8.3 K/mcL (1.6-8.9); Nucleated Red Blood Cells 0.3 /100 WBC (0); Platelet Count 461 K/mcL (140-400); Red Blood Count 3.28 M/mcL (3.82-4.97); Red Cell Distribution Width 22.5 % (11.5-14.5); Segmented Neutrophils % 63.1 %; White Blood Count 13.1 K/mcL (4.3-11.1)
[2018-09-06] MEDS: Metoprolol XL (24 HR) Succ 50 MG TAB.ER.24H PO SCH (09:06)
[2018-09-06] MEDS: Lactobacillus 1 EACH CAP.SPRINK PO SCH (09:07)
[2018-09-06] MEDS: Aspirin Enteric Coated 81 MG Tablet PO SCH (09:07)
[2018-09-06] MEDS ORDERED: APREMILAST 30 MG PO SCH (11:45)
--- NOTE | 2018-09-06 12:08 | Pain Management Consultation ---
Date of Encounter: 09/06/18 Time of Encounter: 11:30 Assessment and Plan (1) Lumbar radiculopathy Current Visit: Yes Status: Acute The assessment and plan as outlined above was discussed with the patient and/or family members who expressed understanding and agreement. All questions were answered. I think a lumbar MRI is warranted. The patient has an acute on chronic episode of back pain with radiation. I would like to move forward with a lumbar MRI without contrast and start the patient on Solu-Medrol 40 mg IV every 8 hours for 2 days and institute gabapentin therapy 3 mg every 12. Continue on current pain medication. We will also consult Dr. Valles following the MRI to determine if the patient is a surgical candidate. She has a history of microdiscectomy at L4-5 dating back to 2000 at outside hospital and lumbar. History of Present Illness Chief complaint: back pain HPI: Ms. Case is a 72 year old female Presents following an acute onset of low back pain with radiation into the buttocks bilaterally. The patient was doing fairly well after the kyphoplasty, and bed over to do something in the refrigerator and as she turned her hips and twisted a little bit she felt a pop in her low back and sudden onset severe back pain that created a debilitative state. The patient states the pain is constant. It is across to her low back and into her buttocks. Its aching throbbing stabbing sensation. The patient does not report any bowel or bladder dysfunction. Patient went to the emergency room and was admitted for observation for pain and low back. CT scan was performed demonstrating stable kyphoplasty set no acute changes. Past Med Surg Social Fam HX - Past Medical History Medical history: arthritis, COPD, fibromyalgia, GERD, hypertension, thyroid disease, TIA, other Additional medical history: irregular heart rate, intersitial fibrosis, mild pulmonary HTN, emphysema, psoriasis, PACs, home o2, Psychiatric history: depression - Past Surgical History Surgical History: breast surgery, hysterectomy, orthopedic, other, sinus surgery, other Additional surgical history: low back surgery, sinus surgery x2, right knee, tumor removal from breast, no stents with angioplasty. - Social History Smoking Status: Former smoker Smokeless Tobacco Status: No Alcohol use: none Drug use: none - Family History Brother Living Status: Hx Family Cardiac Disorders: Yes (afib) Hx Family Cancer: Yes (leukemia, colon cancer , lung) Hx Family Endocrine Disorder: Yes (diabetes) Sister Hx Family Cardiac Disorders: Yes Medications and Allergies Apremilast [Otezla] 30 mg PO BID 08/16/18 [History] Aspirin [Lo-Dose Aspirin EC] 81 mg PO DAILY 08/16/18 [History] Bisacodyl [Woman's Laxative] 5 mg PO HS PRN 08/16/18 [History] Cyclobenzaprine HCl 10 mg PO TID PRN 08/16/18 [History] Ipratropium Neb [Atrovent Neb] 0.5 mg IH Q6HR PRN 08/16/18 [History] Lactobacillus Combination No.8 [Adult Probiotic] 1 cap PO DAILY 08/16/18 [History] Magnesium 250 mg PO DAILY 08/16/18 [History] Metoprolol Succinate [Toprol Xl] 50 mg PO DAILY 08/16/18 [History] Multivitamin [One Daily] 1 tab PO DAILY 08/16/18 [History] Tramadol HCl [Ultram] 50 mg PO QID PRN 08/16/18 [History] Allergy/AdvReac Type Severity Reaction Status Date / Time Erythromycin Base Allergy See Verified 08/16/18 13:34 Comments albuterol AdvReac heart Verified 08/16/18 13:34 racing Amoxicillin [From Augmentin] AdvReac Vomiting Verified 08/16/18 13:34 clavulanic acid AdvReac Diarrhea Verified 08/16/18 13:34 [From Augmentin] simvastatin AdvReac Muscle Pain Verified 08/16/18 13:34 [id number] Reductase AdvReac muscle Verified 08/16/18 13:34 Inhibitor spasms [Statins] tiotropium AdvReac rhinnitis Verified 08/16/18 13:34 [From Spiriva with HandiHaler] Review of Systems - Constitutional Constitutional ROS IM: as per HPI - Cardiovascular Cardiovascular ROS: no chest pain, no leg edema, no lightheadedness - Respiratory Respiratory: no pain on inspiration, no pain with cough - Gastrointestinal Gastrointestinal: no abdominal pain, no constipation, no diarrhea, no heartburn - Musculoskeletal Musculoskeletal ROS: abnormal gait, muscle weakness, radiating pain into limb - Integumentary Integumentary: no erythema, no lesions, no swelling - Neurological Neurological ROS: abnormal gait, radicular pain - Psychiatric Psychiatric general: no anxiety, no confusion, no depression - Hematologic/Lymphatic Hematologic/Lymphatic pediatric: no easy bleeding, no easy bruising Physical Exam Initial Vital Signs Temp Pulse Resp BP Pulse Ox 98.8 F 90 18 108/86 99 09/04/18 20:14 09/04/18 20:14 09/04/18 20:14 09/04/18 20:14 09/04/18 20:14 - General physical appearance General physical appearance: awake & oriented, moderate pain, severe pain - Eyes Eye exam: normal ocular movement - Respiratory normal respiratory effort - Integumentary Integumentary general surgery: no rash - Neurologic other (Straight leg raising test positive bilaterally. Valsalva sign positive.) - Musculoskeletal Musculoskeletal: point tenderness over spinal process, other (Right lower extrem ity weakness at 4 out of 5 left lower extremity weakness at 4 out of 5. Exam limited due to pain) - Psychiatric Psychiatric: anxiety Results - Labs 09/06/18 07:59 09/06/18 07:59 Abnormal lab results WBC 13.1 K/mcL (4.3-11.1) H 09/06/18 07:59 RBC 3.28 M/mcL (3.82-4.97) L 09/06/18 07:59 Hgb 9.7 g/dL (11.5-15.4) L 09/06/18 07:59 Hct 31.4 % (35.3-44.9) L 09/06/18 07:59 MCHC 30.9 g/dL (31.6-35.5) L 09/06/18 07:59 RDW 22.5 % (11.5-14.5) H 09/06/18 07:59 Plt Count 461 K/mcL (140-400) H 09/06/18 07:59 MPV 13.5 fL (9.4-12.4) H 09/06/18 07:59 2.0 K/mcL (0.0-1.3) H 09/06/18 07:59 Nucleated RBCs/100 WBC 0.3 /100 WBC (0) H 09/06/18 07:59 Carbon Dioxide 30 mEq/L (23-29) H 09/06/18 07:59 0.52 mg/dL (0.60-1.20) L 09/06/18 07:59 Glucose 125 mg/dL (70-105) H 09/06/18 07:59 106 Units/L (34-104) H 09/06/18 07:59 6 Units/L (11-82) L 09/04/18 23:01 Diabetes panel 09/06/18 Range/Units 07:59 Sodium 140 (136-145) mEq/L Potassium 3.8 (3.5-5.1) mEq/L Chloride 103 (98-107) mEq/L Carbon Dioxide 30 H (23-29) mEq/L BUN 11 (8-23) mg/dL Creatinine 0.52 L (0.60-1.20) mg/dL Glucose 125 H (70-105) mg/dL Calcium 9.5 (8.6-10.3) mg/dL AST 16 (13-39) Units/L ALT 9 (7-52) Units/L Alkaline Phosphatase 106 H (34-104) Units/L Albumin 3.8 (3.5-5.7) g/dL Calcium panel 09/06/18 Range/Units 07:59 Calcium 9.5 (8.6-10.3) mg/dL Albumin 3.8 (3.5-5.7) g/dL Pituitary panel 09/06/18 Range/Units 07:59 Sodium 140 (136-145) mEq/L Potassium 3.8 (3.5-5.1) mEq/L Chloride 103 (98-107) mEq/L Carbon Dioxide 30 H (23-29) mEq/L BUN 11 (8-23) mg/dL Creatinine 0.52 L (0.60-1.20) mg/dL Glucose 125 H (70-105) mg/dL Calcium 9.5 (8.6-10.3) mg/dL Adrenal panel 09/06/18 Range/Units 07:59 Sodium 140 (136-145) mEq/L Potassium 3.8 (3.5-5.1) mEq/L Chloride 103 (98-107) mEq/L Carbon Dioxide 30 H (23-29) mEq/L BUN 11 (8-23) mg/dL Creatinine 0.52 L (0.60-1.20) mg/dL Glucose 125 H (70-105) mg/dL Calcium 9.5 (8.6-10.3) mg/dL Total Bilirubin 0.7 (0.3-1.0) mg/dL AST 16 (13-39) Units/L ALT 9 (7-52) Units/L Alkaline Phosphatase 106 H (34-104) Units/L Albumin 3.8 (3.5-5.7) g/dL All other labs normal. Consult Discharge Plan - Plan Referrals: Nick Georges DO [Primary Care Provider] -
--- NOTE | 2018-09-06 13:47 | Internal Med Progress Note ---
Hospitalist Progress Note - Encounter Date of Encounter: 09/06/18 Time of Encounter: 09:45 - Subjective Interval History: Patient continues to have severe back pain. Denies any numbness or tingling in lower extremities. No bowel or bladder incontinence. No fevers or chills. - Exam Vitals: Temp Pulse Resp BP Pulse Ox 98.3 F 84 15 100/59 96 09/06/18 12:22 09/06/18 12:22 09/06/18 12:22 09/06/18 12:22 09/06/18 12:22 Exam: General: Patient is alert, moderate distress, oriented x 3 ENT: Mucous membranes moist Respiratory: Good respiratory effort. Normal breath sounds. No wheezing or crackles. Cardiovascular: Regular rate and rhythm. s1 and s2 normal No clicks, rubs, gallops, or murmurs. No pedal edema Abdomen: Abdomen is soft, nontender. Bowel sounds are present Musculoskeletal: Spontaneously moving all extremities Neuro: Alert oriented x 3 normal cranial nerves, no focal deficits DVT Prophylaxis: On subcutaneous heparin - Summary of Assessment and Plan Summary of Assessment and Plan: Acute severe low back pain: Status post recent kyphoplasty. Evaluated by pain management today. Recommend lumbar spine MRI And spine surgery consultation based on results. In the meantime, patient has also been started on Solu-Medrol and gabapentin. Anemia: Stable. Hemoglobin 9.7 today. Leukocytosis: No signs of infection. Will monitor closely. CT of the abdomen and pelvis shows right basal infiltrate concerning for atelectasis versus pneumonia. Pro calcitonin less than 0.02. Therefore more likely to be atelectasis. Will order incentive spirometry. - Time Spent with Patient Total time spent is greater than 50% in coordination of care (as documented) at patient's floor/unit and/or counseling patient: Internal Medicine: Result - Labs CBC & Chem 7: 09/06/18 07:59 09/06/18 07:59 Labs: Short CBC 09/06/18 Range/Units 07:59 WBC 13.1 H (4.3-11.1) K/mcL Hgb 9.7 L (11.5-15.4) g/dL Hct 31.4 L (35.3-44.9) % Plt Count 461 H (140-400) K/mcL Neutrophils # 8.3 (1.6-8.9) K/mcL BMP 06/12/19 07:59 Sodium 140 Potassium 3.8 Chloride 103 Carbon Dioxide 30 H BUN 11 Creatinine 0.52 L Glucose 125 H Calcium 9.5 Liver Function 09/06/18 Range/Units 07:59 Total Bilirubin 0.7 (0.3-1.0) mg/dL AST 16 (13-39) Units/L ALT 9 (7-52) Units/L Alkaline Phosphatase 106 H (34-104) Units/L Albumin 3.8 (3.5-5.7) g/dL - Impressions Impressions Lumbar Spine CT 09/04/18 20:54 IMPRESSION: No acute osseous abnormality of the thoracic or lumbar spine. Multilevel degenerative changes of the thoracic and lumbar spine are similar to prior. D/ / 09/04/2018 22:30:17 Daniella Michel MD / charis Interpreting Provider: Daniella Michel MD Thoracic Spine CT 09/04/18 20:55 IMPRESSION: No acute osseous abnormality of the thoracic or lumbar spine. Multilevel degenerative changes of the thoracic and lumbar spine are similar to prior. D/ / 09/04/2018 22:30:17 Daniella Michel MD / charis Interpreting Provider: Daniella Michel MD Consult Discharge Plan - Plan Referrals: Nick Georges DO [Primary Care Provider] -
[2018-09-06] MEDS: Gabapentin 300 MG CAPSULE PO SCH ×2 (14:02→21:07)
[2018-09-06] MEDS: MethylPREDNISolone 40 MG/ML VIAL IVP SCH ×2 (14:59→23:15)
[2018-09-06] MEDS: APREMILAST 30 MG PO SCH (21:07)
[2018-09-07] MEDS: *HR* OxyCODONE Immed Rel 5 MG TABLET PO PRN ×3 (05:08→17:27)
[2018-09-07] MEDS: *HR* Heparin 5,000 UNIT/ML VIAL SQ SCH ×2 (05:08→16:25)
[2018-09-07] MEDS: MethylPREDNISolone 40 MG/ML VIAL IVP SCH ×2 (07:54→16:25)
[2018-09-07] MEDS: Metoprolol XL (24 HR) Succ 50 MG TAB.ER.24H PO SCH (07:54)
[2018-09-07] MEDS: Aspirin Enteric Coated 81 MG Tablet PO SCH (07:54)
[2018-09-07] MEDS: Gabapentin 300 MG CAPSULE PO SCH ×2 (07:54→22:02)
[2018-09-07] MEDS: Lactobacillus 1 EACH CAP.SPRINK PO SCH (07:57)
[2018-09-07] MEDS: APREMILAST 30 MG PO SCH ×2 (07:57→22:02)
[2018-09-07] MEDS ORDERED: Ibuprofen 400 MG TABLET PO PRN (12:45)
[2018-09-07] MEDS ORDERED: Nitroglycerin 0.4 MG TAB.SUBL SL PRN (12:45)
--- NOTE | 2018-09-07 14:05 | Internal Med Progress Note ---
Hospitalist Progress Note - Encounter Date of Encounter: 09/07/18 Time of Encounter: 10:15 - Subjective Interval History: Patient continues to have significant low back pain although it appears to be slightly improved compared to yesterday. She denies any bowel bladder incontinence. No lower extremity weakness or numbness. No fever or chills reported overnight. She does have some constipation. - Exam Vitals: Temp Pulse Resp BP Pulse Ox 97.5 F L 92 16 110/67 95 09/07/18 11:23 09/07/18 11:23 09/07/18 11:23 09/07/18 11:23 09/07/18 11:23 Exam: General: Patient is alert, moderate distress, oriented x 3 ENT: Mucous membranes moist Respiratory: Good respiratory effort. Normal breath sounds. No wheezing or crackles. Cardiovascular: Regular rate and rhythm. s1 and s2 normal No clicks, rubs, gallops, or murmurs. No pedal edema Abdomen: Abdomen is soft, nontender. Bowel sounds are present Musculoskeletal: Spontaneously moving all extremities Neuro: Alert oriented x 3 normal cranial nerves, no focal deficits - Assessment and Plan (1) Lumbar radiculopathy Current Visit: Yes Status: Acute (2) Anemia Current Visit: Yes Status: Chronic DVT Prophylaxis: On subcutaneous heparin - Summary of Assessment and Plan Summary of Assessment and Plan: Acute severe low back pain: Status post recent kyphoplasty. Slight improvement with current medication regimen including Solu-Medrol, gabapentin and Flexeril. Awaiting spine surgery evaluation. Will order PTOT with TLSO brace. Anemia: Stable Leukocytosis: Will recheck CBC tomorrow. - Time Spent with Patient Total time spent is greater than 50% in coordination of care (as documented) at patient's floor/unit and/or counseling patient: Internal Medicine: Result - Labs CBC & Chem 7: 09/06/18 07:59 09/06/18 07:59 - Impressions Impressions Lumbar Spine MRI 09/06/18 11:46 IMPRESSION: No acute abnormality. L1, L3, and L4 compression fractures status post vertebroplasty. Fractures are in unchanged configuration. Mild, nonspecific, persistent L1 marrow edema, which may reflect post procedure change and/or healing. Moderate multilevel degenerative changes of lumbar spine. Severe spinal canal stenosis at L2-L3 and moderate spinal canal stenosis at L3-L4. Multilevel neural foraminal narrowing, including moderate bilateral neural foraminal stenosis at L2-L3 and L3-L4, and moderate right neural foraminal stenosis at L4-L5, not significantly changed. D/ / 09/06/2018 13:59:04 Daniella Michel MD / charis Interpreting Provider: Daniella Michel MD Consult Discharge Plan - Plan Referrals: Nick Georges DO [Primary Care Provider] - (2) Anemia Qualifiers: Anemia type: unspecified type Qualified Code(s): D64.9 - Anemia, unspecified
--- NOTE | 2018-09-07 18:35 | Pain Management Progress Note ---
Date of Encounter: 09/07/18 Time of Encounter: 18:35 - Assessment and Plan (1) Lumbar radiculopathy Current Visit: Yes Status: Acute The patient may be a candidate for alf and rehabilitation for the next week. She is improving with IV steroids. I think is an outpatient we can follow-up with her in the clinic for continued management. I think she would do well with alf rehabilitation, but if the patient improved significantly after rehabilitation assessment tomorrow we could theoretically recommend that she be discharged with outpatient physical therapy at home. I recommend continuing gabapentin as an outpatient. Patient can follow-up with me in the clinic when discharged. I will sign off at this time. Subjective Patient reports: no new complaints, feels better, still having pain, pain is less Narrative: Patient thinks pain meds working better. Having hard time with sitting for BM. Does not feel independent. Objective Vital Signs - Last 8 Hours Temp Pulse Resp BP Pulse Ox 09/07/18 16:19 97.7 F 80 16 112/67 95 09/07/18 11:23 97.5 F L 92 16 110/67 95 Intake and Output 09/07/18 09/07/18 09/07/18 07:59 15:59 23:59 Intake Total 880 / 1380 500 / 1380 Output Total 800 / 800 Balance 880 / 580 -300 / 580 Intake: Oral 880 / 1380 500 / 1380 Output: Urine 800 / 800 Other: Meal Breakfast Percent of Meal Consumed 75% # Voids 1 - General physical appearance no distress, moderate pain - Eyes normal ocular movement - Respiratory normal expansion - Psychiatric oriented to time, oriented to person, oriented to place, speech is normal, memory intact - Additional Exam Resting comfortably in moving all extremities. Laying flat on her back. - Labs 09/06/18 07:59 09/06/18 07:59 Consult Discharge Plan - Plan Referrals: Nick Georges DO [Primary Care Provider] -
[2018-09-07] MEDS: MOM Conc 10 ML UD.LIQ PO SCH (21:56)
[2018-09-08] MEDS: *HR* OxyCODONE Immed Rel 5 MG TABLET PO PRN ×4 (01:02→21:37)
[2018-09-08] MEDS: MethylPREDNISolone 40 MG/ML VIAL IVP SCH ×3 (01:02→16:37)
[2018-09-08 03:06] LABS: Basophils % 0.1 %; Hematocrit 31.6 % (35.3-44.9); Hemoglobin 9.9 g/dL (11.5-15.4); Immature Granulocytes % 0.8 % (0-4); Lymphocytes # 1.2 K/mcL (0.6-4.6); Mean Corpuscular HGB Conc 31.3 g/dL (31.6-35.5); Mean Corpuscular Hemoglobin 29.6 pg (28.0-33.3); Mean Corpuscular Volume 94.3 fL (83.0-100.0); Mean Platelet Volume 13.6 fL (9.4-12.4); Monocytes # 1.1 K/mcL (0.0-1.3); Monocytes % 11.7 %; Neutrophils # 6.7 K/mcL (1.6-8.9); Nucleated Red Blood Cells 0.6 /100 WBC (0); Platelet Count 476 K/mcL (140-400); Red Blood Count 3.35 M/mcL (3.82-4.97); Segmented Neutrophils % 74.4 %
[2018-09-08 03:24] LABS: BUN/Creatinine Ratio 26 (6-26); Blood Urea Nitrogen 15 mg/dL (8-23); Calcium 9.6 mg/dL (8.6-10.3); Carbon Dioxide 27 mEq/L (23-29); Chloride 104 mEq/L (98-107); Glucose 177 mg/dL (70-105); Osmolality,Calculated 295 (280-300); Potassium 3.9 mEq/L (3.5-5.1); Sodium 140 mEq/L (136-145); eGFR For African Americans > 60 (> 60); eGFR For Non-African Americans > 60 (> 60)
[2018-09-08] MEDS: *HR* Heparin 5,000 UNIT/ML VIAL SQ SCH ×2 (05:59→16:37)
--- NOTE | 2018-09-08 08:36 | Spine Progress Note ---
Date of Encounter: 09/08/18 Time of Encounter: 08:31 - Assessment and Plan (1) Lumbar stenosis without neurogenic claudication Current Visit: Yes Status: Chronic On exam afebrile vital signs stable. She is in mild distress secondary to back pain. She fires all upper and lower extremity motor groups with good strength. Her hips move symmetrically. There is no clonus. She has a negative Javi sign. Gait was not tested. She has no focal tenderness to palpation along the thoracolumbar spine. MRI of the lumbar spine reveals multilevel degenerative changes. There is evidence of pre-multilevel kyphoplasty's. There is stenosis most notable at L3- 4 and L4-5 which is moderate in degree. Impression: 1) lumbar stenosis 2) status post multilevel kyphoplasty's Plan: Had a long discussion with the patient. I see no role for acute surgical intervention. She can be managed with rehabilitation, analgesics, neuroleptics for now. I agree that oral steroids are also appropriate. She can follow-up with Dr. Guevara on an outpatient basis for consideration of other interventional treatments which may include lumbar epidural steroid injections. A lumbar decompression at a later date could be considered, however I think this is an acute episode and she is not demonstrating classic neurogenic claudication/predominant radicular symptoms which would be more amenable to a good surgical result. She can follow-up in my office as needed if she fails nonoperative treatments with Dr. Guevara. Subjective Principal diagnosis: Back pain, status post kyphoplasty Interval history: 72-year-old woman who has had back pain and is status post recent kyphoplasty procedure at 3 levels 2 months ago. She was admitted for continued back pain and some radiating component into the hips. During this hospitalization she has had analgesics and oral steroids and has had some improvement. We have been asked to see by Dr. Guevara to see if there are further enter the origins on a surgical side. She denies fevers or chills. She rates the pain about a 5 on a pain scale. Objective Vital signs: Vital Signs Temp Pulse Resp BP Pulse Ox 09/08/18 07:20 97.7 F 88 18 108/70 96 09/08/18 02:36 97.6 F 79 16 123/57 94 09/07/18 19:32 97.8 F 85 17 122/66 94 09/07/18 16:19 97.7 F 80 16 112/67 95 09/07/18 11:30 97.6 F 79 17 125/75 95 09/07/18 11:23 97.5 F L 92 16 110/67 95 Intake and Output 09/07/18 09/08/18 09/08/18 23:59 07:59 15:59 Intake Total 500 / 1380 Output Total 800 / 800 100 / 100 Balance -300 / 580 -100 / -100 Intake: Oral 500 / 1380 Output: Urine 800 / 800 100 / 100 Other: Stool Size Large Stool Consistency formed Stool Color Brown # Voids 1 # Bowel Movements 1 - Labs CBC & BMP: 09/08/18 02:32 09/08/18 02:32 Labs: Abnormal lab results WBC 13.1 K/mcL (4.3-11.1) H 09/06/18 07:59 RBC 3.35 M/mcL (3.82-4.97) L 09/08/18 02:32 Hgb 9.9 g/dL (11.5-15.4) L 09/08/18 02:32 Hct 31.6 % (35.3-44.9) L 09/08/18 02:32 MCHC 31.3 g/dL (31.6-35.5) L 09/08/18 02:32 RDW 22.0 % (11.5-14.5) H 09/08/18 02:32 Plt Count 476 K/mcL (140-400) H 09/08/18 02:32 MPV 13.6 fL (9.4-12.4) H 09/08/18 02:32 2.0 K/mcL (0.0-1.3) H 09/06/18 07:59 Nucleated RBCs/100 WBC 0.6 /100 WBC (0) H 09/08/18 02:32 Carbon Dioxide 30 mEq/L (23-29) H 09/06/18 07:59 0.58 mg/dL (0.60-1.20) L 09/08/18 02:32 Glucose 177 mg/dL (70-105) H 09/08/18 02:32 106 Units/L (34-104) H 09/06/18 07:59 6 Units/L (11-82) L 09/04/18 23:01 Consult Discharge Plan - Plan Referrals: Nick Georges DO [Primary Care Provider] -
[2018-09-08] MEDS: APREMILAST 30 MG PO SCH ×2 (09:02→21:38)
[2018-09-08] MEDS: Gabapentin 300 MG CAPSULE PO SCH ×2 (09:02→21:37)
[2018-09-08] MEDS: Aspirin Enteric Coated 81 MG Tablet PO SCH (09:02)
[2018-09-08] MEDS: Lactobacillus 1 EACH CAP.SPRINK PO SCH (09:02)
[2018-09-08] MEDS: Metoprolol XL (24 HR) Succ 50 MG TAB.ER.24H PO SCH (09:02)
--- NOTE | 2018-09-08 12:11 | Internal Med Progress Note ---
Hospitalist Progress Note - Encounter Date of Encounter: 09/08/18 Time of Encounter: 09:00 - Subjective Interval History: Patient reports that her back pain is better now after she received oxycodone. She has been able to work with physical therapy this morning. Wishes to go to rehabilitation for continued therapy. Denies any bowel or bladder incontinence. No numbness or tingling in her lower extremities. - Exam Vitals: Temp Pulse Resp BP Pulse Ox 98.0 F 88 18 113/67 94 09/08/18 11:42 09/08/18 11:42 09/08/18 11:42 09/08/18 11:42 09/08/18 11:42 Exam: General: Patient is alert, no acute distress, oriented x 3 ENT: Mucous membranes moist Respiratory: Good respiratory effort. Normal breath sounds. No wheezing or crackles. Cardiovascular: Regular rate and rhythm. s1 and s2 normal No clicks, rubs, gallops, or murmurs. No pedal edema Abdomen: Abdomen is soft, nontender. Bowel sounds are present Musculoskeletal: Spontaneously moving all extremities Skin: warm, dry, intact. Neuro: Alert oriented x 3 normal cranial nerves, no focal deficits - Assessment and Plan (1) Lumbar radiculopathy Current Visit: Yes Status: Acute (2) Anemia Current Visit: Yes Status: Chronic DVT Prophylaxis: On subcutaneous heparin - Summary of Assessment and Plan Summary of Assessment and Plan: Acute severe low back pain from lumbar radiculopathy: Status post recent kyphoplasty. Pain management and spine surgery consult appreciated. We will fo llow recommendations. Continue steroids, pain medications and gabapentin. Continue PTOT. Plan for placement to skilled rehabilitation. Eventually she will follow up with pain management for possible interventions as outpatient. Anemia: Stable. Hemoglobin 9.9 today. Leukocytosis: Resolved - Time Spent with Patient Total time spent is greater than 50% in coordination of care (as documented) at patient's floor/unit and/or counseling patient: Internal Medicine: Result - Labs CBC & Chem 7: 09/08/18 02:32 09/08/18 02:32 Labs: Short CBC 09/08/18 Range/Units 02:32 WBC 9.0 (4.3-11.1) K/mcL Hgb 9.9 L (11.5-15.4) g/dL Hct 31.6 L (35.3-44.9) % Plt Count 476 H (140-400) K/mcL Neutrophils # 6.7 (1.6-8.9) K/mcL BMP 09/08/18 02:32 Sodium 140 Potassium 3.9 Chloride 104 Carbon Dioxide 27 BUN 15 Creatinine 0.58 L Glucose 177 H Calcium 9.6 Consult Discharge Plan - Plan Referrals: Nick Georges DO [Primary Care Provider] - (2) Anemia Qualifiers: Anemia type: unspecified type Qualified Code(s): D64.9 - Anemia, unspecified
[2018-09-08] MEDS: MOM Conc 10 ML UD.LIQ PO SCH (21:33)
[2018-09-09] MEDS: *HR* Heparin 5,000 UNIT/ML VIAL SQ SCH (06:01)
[2018-09-09] MEDS: *HR* OxyCODONE Immed Rel 5 MG TABLET PO PRN ×2 (06:02→12:35)
[2018-09-09] MEDS: Lactobacillus 1 EACH CAP.SPRINK PO SCH (08:41)
[2018-09-09] MEDS: Gabapentin 300 MG CAPSULE PO SCH (08:51)
[2018-09-09] MEDS: Aspirin Enteric Coated 81 MG Tablet PO SCH (08:51)
[2018-09-09] MEDS: Metoprolol XL (24 HR) Succ 50 MG TAB.ER.24H PO SCH (08:51)
[2018-09-09] MEDS: APREMILAST 30 MG PO SCH (08:52)
--- NOTE | 2018-09-09 11:29 | Discharge Summary ---
- NOTES TO OUTPATIENT PROVIDER Notes to Outpatient Provider: Patient with a history of pulmonary fibrosis, hypertension, COPD, osteoarthritis, history of compression fractures who recently underwent kyphoplasty was hospitalized here after presenting to the ER with complaints of acute onset severe back pain after she bent to pick something up. She was evaluated in the ER and then placed in the hospital to help control her pain. She did not have any neural deficits. She was evaluated by pain management and underwent MRI of the lumbar spine which did not show any acute fractures. She was prescribed steroids, gabapentin and Flexeril along with narcotic medications to help with her pain. Her pain has now improved. She has been able to participate with physical therapy and has been recommended placement to skilled rehabilitation. She will be discharged to skilled rehabilitation today and will follow up with the management as outpatient. Orders not resulted at time of discharge: Pending orders 09/09/18 09:56 EKG [ECG 12 lead ECG] [ECG] Routine Date of Encounter: 09/09/18 Time of Encounter: 11:24 - Discharge Diagnosis (1) Lumbar radiculopathy Priority: Primary Status: Acute (2) Anemia Priority: Secondary Status: Chronic Qualifiers: Anemia type: unspecified type Qualified Code(s): D64.9 - Anemia, unspecified Hospital course: Ms. Case is a 72 year old female Patient with a history of pulmonary fibrosis, hypertension, COPD, osteoarthritis, history of compression fractures who recently underwent kyphoplasty was hospitalized here after presenting to the ER with complaints of acute onset severe back pain after she bent to pick something up. She was evaluated in the ER and then placed in the hospital to help control her pain. She did not have any neural deficits. She was evaluated by pain management and underwent MRI of the lumbar spine which did not show any acute fractures. She was prescribed steroids, gabapentin and Flexeril along with narcotic medications to help with her pain. Her pain has now improved. She has been able to participate with physical therapy and has been recommended placement to skilled rehabilitation. She will be discharged to skilled rehabilitation today and will follow up with the management as outpatient. Discharge discussed with: patient - Time Spent with Patient Total time spent providing and/or coordinating discharge services: Time spent: Greater than 30 minutes (32 min) - Discharge Medications Prescriptions: New MOM Conc [MILK OF MAGNESIA conc] 10 ml PO HS ud.liq Gabapentin [Neurontin] 300 mg PO BID #60 capsule OxyCODONE Immed Rel [Roxicodone 5 MG] 5 mg PO Q6HR PRN 5 Days #14 tablet PRN Reason: Pain Continued Apremilast [Otezla] 30 mg PO BID Cyclobenzaprine HCl 10 mg PO TID PRN PRN Reason: Muscle Spasm Ipratropium Neb [Atrovent Neb] 0.5 mg IH Q6HR PRN PRN Reason: Shortness Of Breath Lactobacillus Combination No.8 [Adult Probiotic] 1 cap PO DAILY Magnesium 250 mg PO QPM Metoprolol Succinate [Toprol Xl] 50 mg PO QAM Multivitamin [One Daily] 1 tab PO DAILY Aspirin [Adult Aspirin Regimen] 81 mg PO DAILY Ciclopirox 1 appl TP 3XW Clobetasol Propionate [Cormax] 1 appl TP BID PRN PRN Reason: PSORIASIS Ibuprofen [Ibu-200] 400 mg PO DAILY PRN PRN Reason: Pain Nitroglycerin [Nitrostat] 0.4 mg SL AD PRN PRN Reason: Chest Pain Non-Formulary Medication 1 - 4 tab PO HS PRN PRN Reason: Constipation Triamcinolone Acet 0.1% CRM [Kenalog] 1 appl TP BID PRN PRN Reason: PSORIASIS Triamcinolone Acet 0.1% OINT [Kenalog] 1 appl TP BID PRN PRN Reason: PSORIASIS Discontinued Tramadol HCl [Ultram] 50 mg PO QID PRN PRN Reason: Pain Home Medications: Apremilast [Otezla] 30 mg PO BID 08/16/18 [History] Cyclobenzaprine HCl 10 mg PO TID PRN 08/16/18 [History] Ipratropium Neb [Atrovent Neb] 0.5 mg IH Q6HR PRN 08/16/18 [History] Lactobacillus Combination No.8 [Adult Probiotic] 1 cap PO DAILY 08/16/18 [History] Magnesium 250 mg PO QPM 08/16/18 [History] Metoprolol Succinate [Toprol Xl] 50 mg PO QAM 08/16/18 [History] Multivitamin [One Daily] 1 tab PO DAILY 08/16/18 [History] Aspirin [Adult Aspirin Regimen] 81 mg PO DAILY 09/07/18 [History] Ciclopirox 1 appl TP 3XW 09/07/18 [History] Clobetasol Propionate [Cormax] 1 appl TP BID PRN 09/07/18 [History] Ibuprofen [Ibu-200] 400 mg PO DAILY PRN 09/07/18 [History] Nitroglycerin [Nitrostat] 0.4 mg SL AD PRN 09/07/18 [History] Non-Formulary Medication 1 - 4 tab PO HS PRN 09/07/18 [History] Triamcinolone Acet 0.1% CRM [Kenalog] 1 appl TP BID PRN 09/07/18 [History] Triamcinolone Acet 0.1% OINT [Kenalog] 1 appl TP BID PRN 09/07/18 [History] Gabapentin [Neurontin] 300 mg PO BID #60 capsule 09/09/18 [Rx] MOM Conc [MILK OF MAGNESIA conc] 10 ml PO HS ud.liq 09/09/18 [Rx] OxyCODONE Immed Rel [Roxicodone 5 MG] 5 mg PO Q6HR PRN 5 Days #14 tablet 09/09/18 [Rx] Allergies/Adverse Reactions: Allergy/AdvReac Type Severity Reaction Status Date / Time Erythromycin Base Allergy See Verified 08/16/18 13:34 Comments albuterol AdvReac heart Verified 08/16/18 13:34 racing Amoxicillin [From Augmentin] AdvReac Vomiting Verified 08/16/18 13:34 clavulanic acid AdvReac Diarrhea Verified 08/16/18 13:34 [From Augmentin] simvastatin AdvReac Muscle Pain Verified 08/16/18 13:34 [place]-Rwc-Xfd Reductase AdvReac muscle Verified 08/16/18 13:34 Inhibitor spasms [Statins] tiotropium AdvReac rhinnitis Verified 08/16/18 13:34 [From Spiriva with HandiHaler] Date of admission: 09/06/18 14:58 Primary care physician: Nick Georges, Consults: 09/05/18 09:02 Consult to Pain Management [CONS] Routine Consulting Provider: Pain Mgt Interventional Demi Reason for Consult: severe lumbar pain, recent kyphoplasty on 08/[address] Guevara Call Completed: Yes 09/05/18 10:04 Consult to Pastoral Services [CONS] Routine Comment: Per pt request 09/06/18 11:48 Consult to Orthopedic Surgery [CONS] Routine Consulting Provider: Ramiro Valles Jr Reason for Consult: Back pain Call Completed: Yes 09/07/18 09:10 Consult to Occupational Therapy [CONS] Routine Comment: Evaluate, develop and implement POC Reason for Consult: Eval and treat Does patient have active BEDREST order?: No Is patient medically & hemodynamically stable?: Yes Consult to Physical Therapy [CONS] Routine Comment: Evaluate, develop and implement POC Reason for Consult: Eval and treat Does patient have active BEDREST order?: No Is patient medically & hemodynamically stable?: Yes Consult to House Player [CONS] Routine Reason for SW Consult: Discharge planning Discharging clinician: Rosalba Mosher Anticipated date of discharge: 09/09/18 - Constitutional Vitals: Temp Pulse Resp BP Pulse Ox 97.6 F 80 17 118/63 96 09/09/18 06:59 09/09/18 06:59 09/09/18 06:59 09/09/18 06:59 09/09/18 06:59 Exam: General: Patient is alert, mild distress, oriented x 3 Respiratory: Good respiratory effort. Normal breath sounds. No wheezing or crackles. Cardiovascular: Regular rate and rhythm. s1 and s2 normal No clicks, rubs, gallops, or murmurs. No pedal edema Abdomen: Abdomen is soft, nontender. Bowel sounds are present Musculoskeletal: Spontaneously moving all extremities Skin: warm, dry, intact. Neuro: Alert oriented x 3 no focal deficits - Patient Status Disposition: Transfer SNF Condition: Fair Functional capacity at discharge: wheelchair bound Overall status at discharge: patient is progressing back to baseline - Discharge Instructions Follow Up With: Nick Georges DO [Primary Care Provider] - (in 1-2 weeks) Celso Guevara DO [Partnered Physician] - (in 1-2 weeks) - Diet and Activity Activity: as per physical therapy Diet: low fat, low cholesterol, low salt diet
--- NOTE | 2018-09-09 11:35 | Physician Discharge Referral ---
ExtendedCare Referral Info Institutional Level of Care: Skilled - Diagnosis (1) Lumbar radiculopathy Priority: Primary Status: Acute (2) Anemia Priority: Secondary Status: Chronic Prognosis: Fair Aware of Diagnosis: Patient, Family Aware of Prognosis: Patient, Family - Transfer Medications Prescriptions: Gabapentin [Neurontin] 300 mg PO BID #60 capsule OxyCODONE Immed Rel [Roxicodone 5 MG] 5 mg PO Q6HR PRN 5 Days #14 tablet PRN Reason: Pain Home Medications: Apremilast [Otezla] 30 mg PO BID 08/16/18 [History] Cyclobenzaprine HCl 10 mg PO TID PRN 08/16/18 [History] Ipratropium Neb [Atrovent Neb] 0.5 mg IH Q6HR PRN 08/16/18 [History] Lactobacillus Combination No.8 [Adult Probiotic] 1 cap PO DAILY 08/16/18 [History] Magnesium 250 mg PO QPM 08/16/18 [History] Metoprolol Succinate [Toprol Xl] 50 mg PO QAM 08/16/18 [History] Multivitamin [One Daily] 1 tab PO DAILY 08/16/18 [History] Aspirin [Adult Aspirin Regimen] 81 mg PO DAILY 09/07/18 [History] Ciclopirox 1 appl TP 3XW 09/07/18 [History] Clobetasol Propionate [Cormax] 1 appl TP BID PRN 09/07/18 [History] Ibuprofen [Ibu-200] 400 mg PO DAILY PRN 09/07/18 [History] Nitroglycerin [Nitrostat] 0.4 mg SL AD PRN 09/07/18 [History] Non-Formulary Medication 1 - 4 tab PO HS PRN 09/07/18 [History] Triamcinolone Acet 0.1% CRM [Kenalog] 1 appl TP BID PRN 09/07/18 [History] Triamcinolone Acet 0.1% OINT [Kenalog] 1 appl TP BID PRN 09/07/18 [History] Gabapentin [Neurontin] 300 mg PO BID #60 capsule 09/09/18 [Rx] MOM Conc [MILK OF MAGNESIA conc] 10 ml PO HS ud.liq 09/09/18 [Rx] OxyCODONE Immed Rel [Roxicodone 5 MG] 5 mg PO Q6HR PRN 5 Days #14 tablet 09/09/18 [Rx] Allergies/Adverse Reactions: Allergy/AdvReac Type Severity Reaction Status Date / Time Erythromycin Base Allergy See Verified 08/16/18 13:34 Comments albuterol AdvReac heart Verified 08/16/18 13:34 racing Amoxicillin [From Augmentin] AdvReac Vomiting Verified 08/16/18 13:34 clavulanic acid AdvReac Diarrhea Verified 08/16/18 13:34 [From Augmentin] simvastatin AdvReac Muscle Pain Verified 08/16/18 13:34 Vjwiamu-Ytj-Tor Reductase AdvReac muscle Verified 08/16/18 13:34 Inhibitor spasms [Statins] tiotropium AdvReac rhinnitis Verified 08/16/18 13:34 [From Spiriva with HandiHaler] - Respiratory Orders Smoking Cessation: Smoking cessation has been advised. For more information, call the [place] Tobacco Quit Line at 9-301-WTXH-NOW. - Mobility Orders Other (per PT) - Rehabiliation Orders Rehab Potential: Fair Rehab Orders: Evaluation for Physical Therapy, Evaluation for Occupational Therapy Other: PT/OT activity with TLSO brace in place - Diet Orders No Added Salt (SAMMIE), Cardiac CERTIFICATION: I certify that the transfer of the above named patient to an Extended Care Facility is necessary for the continuing treatment of the diagnosis listed. The above information is true and accurate reflection of patient's current condition. Confidential - Redisclosure prohibited without a patient's written consent.
[2018-09-09 12:13] VITALS: BP 115/64
--- NOTE | 2018-09-12 14:54 | Electrocardiograph Report ---
[address] [address] Test Date: 2018-09-09 Pat Name: Dafne Case Department: [id number] Room: [facility] Gender: F Broommaker: FLORINDA : 1945 Requested By: Rosalba Mosher Order Number: [id number] Reading MD: Lizeth Young Measurements Intervals [place] Rate: 76 P: 18 [place]: 165 QRS: -18 QRSD: 78 T: 31 QT: 357 QTc: 387 Interpretive Statements SINUS RHYTHM MINIMAL VOLTAGE CRITERIA FOR LVH, CONSIDER NORMAL VARIANT Electronically Signed On 09-12-2018 14:52:49 EDT by Lizeth Young
== END 2018-09-09 13:25 | DRG 552 ==
LOC: CDU 20:10 → EMEROOARM 20:10 → SUATTDRO 09-05 07:54 → CDU 09-05 07:57 → 3NENU 09-05 16:52
PROVIDERS: ADMIT Internal Medicine; ATTEND Internal Medicine

== ENCOUNTER 2018-11-18 19:54 | Observation (INO) ==
[2018-11-18 20:30] LABS: Basophils # 0.1 K/mcL (0.0-0.2); Basophils % 1.1 %; Eosinophils # 0.3 K/mcL (0.0-0.6); Eosinophils % 3.6 %; Hematocrit 30.5 % (35.3-44.9); Hemoglobin 9.5 g/dL (11.5-15.4); Immature Granulocytes % 0.3 % (0-4); Lymphocytes # 2.4 K/mcL (0.6-4.6); Lymphocytes % 26.2 %; Mean Corpuscular HGB Conc 31.1 g/dL (31.6-35.5); Mean Corpuscular Hemoglobin 30.5 pg (28.0-33.3); Mean Corpuscular Volume 98.1 fL (83.0-100.0); Mean Platelet Volume 13.1 fL (9.4-12.4); Monocytes # 1.2 K/mcL (0.0-1.3); Monocytes % 12.6 %; Neutrophils # 5.2 K/mcL (1.6-8.9); Nucleated Red Blood Cells 0.3 /100 WBC (0); Platelet Count 586 K/mcL (140-400); Red Blood Count 3.11 M/mcL (3.82-4.97); Red Cell Distribution Width 23.3 % (11.5-14.5); Segmented Neutrophils % 56.2 %; White Blood Count 9.2 K/mcL (4.3-11.1)
[2018-11-18 20:33] LABS: INR 1.1; Prothrombin Time 12.7 Seconds (9.4-12.1)
[2018-11-18 20:36] LABS: Activated Partial Thrombo Time 32.5 Seconds (26.0-36.0)
[2018-11-18 20:45] LABS: Anisocytosis 2+ (Not Present); Large Platelets Present (Not Present); Platelet Estimate Increased (Normal); Poikilocytosis 1+ (Not Present)
[2018-11-18 20:48] LABS: BUN/Creatinine Ratio 14 (6-26); Blood Urea Nitrogen 8 mg/dL (8-23); Calcium 9.9 mg/dL (8.6-10.3); Carbon Dioxide 29 mEq/L (23-29); Chloride 100 mEq/L (98-107); Glucose 137 mg/dL (70-105); Osmolality,Calculated 286 (280-300); Sodium 138 mEq/L (136-145); eGFR For African Americans > 60 (> 60); eGFR For Non-African Americans > 60 (> 60)
[2018-11-18 20:49] LABS: Troponin I < 0.03 ng/mL (< 0.04)
[2018-11-18] MEDS ORDERED: Cefepime HCl 1,000 MG in 0.9 % Sodium Chloride Mini Bag 100 ML IVPB STA (21:10)
[2018-11-18] MEDS ORDERED: Aminoglycoside Consult 1 EACH MC ONE (21:22)
[2018-11-18] MEDS ORDERED: Ipratropium Neb 0.5 MG NEBULIZER IH ONE (21:34)
[2018-11-18] MEDS ORDERED: Ipratropium Neb 0.5 MG NEBULIZER ONE (21:36)
[2018-11-18] MEDS ORDERED: Naloxone 0.4 MG/ML INJ IVP PRN (22:19)
[2018-11-18] MEDS ORDERED: Ipratropium/Albuterol Neb 3 ML IH PRN (22:36)
[2018-11-18] MEDS: *HR* OxyCODONE Immed Rel 5 MG TABLET PO PRN (23:14)
[2018-11-19] MEDS ORDERED: Isovue-370 500 ML BOTTLE IVP ONE (01:17)
[2018-11-19 02:48] LABS: Basophils # 0.1 K/mcL (0.0-0.2); Basophils % 1.1 %; Eosinophils # 0.4 K/mcL (0.0-0.6); Eosinophils % 5.3 %; Hematocrit 27.6 % (35.3-44.9); Hemoglobin 8.7 g/dL (11.5-15.4); Immature Granulocytes % 0.4 % (0-4); Lymphocytes # 2.5 K/mcL (0.6-4.6); Lymphocytes % 29.7 %; Mean Corpuscular HGB Conc 31.5 g/dL (31.6-35.5); Mean Corpuscular Hemoglobin 30.7 pg (28.0-33.3); Mean Corpuscular Volume 97.5 fL (83.0-100.0); Mean Platelet Volume 13.4 fL (9.4-12.4); Monocytes % 11.9 %; Neutrophils # 4.3 K/mcL (1.6-8.9); Nucleated Red Blood Cells 0.2 /100 WBC (0); Platelet Count 532 K/mcL (140-400); Red Blood Count 2.83 M/mcL (3.82-4.97); Red Cell Distribution Width 23.4 % (11.5-14.5); Segmented Neutrophils % 51.6 %; White Blood Count 8.3 K/mcL (4.3-11.1)
[2018-11-19 03:07] LABS: BUN/Creatinine Ratio 12 (6-26); Blood Urea Nitrogen 6 mg/dL (8-23); Calcium 8.9 mg/dL (8.6-10.3); Carbon Dioxide 24 mEq/L (23-29); Chloride 102 mEq/L (98-107); Glucose 107 mg/dL (70-105); Osmolality,Calculated 278 (280-300); Potassium 3.9 mEq/L (3.5-5.1); Sodium 135 mEq/L (136-145); eGFR For African Americans > 60 (> 60); eGFR For Non-African Americans > 60 (> 60)
[2018-11-19 03:10] LABS: Anisocytosis 3+ (Not Present); Macrocytosis Present (Not Present); Microcytosis Present (Not Present); Poikilocytosis 2+ (Not Present); Schistocytes 1+ (Not Present)
[2018-11-19 03:11] LABS: Platelet Estimate Increased (Normal); Tear Drop Cells 1+ (Not Present)
[2018-11-19] MEDS: *HR* Heparin 5,000 UNIT/ML VIAL SQ SCH ×2 (05:38→17:21)
[2018-11-19] MEDS: *HR* OxyCODONE Immed Rel 5 MG TABLET PO PRN ×3 (05:38→19:29)
[2018-11-19] MEDS ORDERED: MetroNIDAZOLE 500 MG/100 ML 500 MG/100 ML BAG IVPB SCH (08:00)
[2018-11-19] MEDS ORDERED: Cefepime HCl 2,000 MG in Water for inj. (sterile) 20 ML IVP SCH (08:00)
[2018-11-19] MEDS: Aspirin Enteric Coated 81 MG Tablet PO SCH (09:12)
[2018-11-19] MEDS: Metoprolol XL (24 HR) Succ 50 MG TAB.ER.24H PO SCH (09:13)
[2018-11-19] MEDS: Gabapentin 300 MG CAPSULE PO SCH ×2 (09:13→19:29)
[2018-11-19] MEDS: Magnesium Oxide 400 MG TABLET PO SCH (09:13)
[2018-11-19] MEDS: Apremilast [Otezla] 30 MG PO SCH ×2 (10:00→20:23)
[2018-11-19] MEDS ORDERED: levoFLOXacin 750 MG/150 ML 750 MG/150 ML BAG IVPB ONE (21:01)
[2018-11-19] MEDS ORDERED: levoFLOXacin 750 MG/150 ML 750 MG/150 ML BAG IVPB SCH (22:00)
[2018-11-20] MEDS: *HR* Heparin 5,000 UNIT/ML VIAL SQ SCH (05:25)
[2018-11-20] MEDS: Magnesium Oxide 400 MG TABLET PO SCH (08:56)
[2018-11-20] MEDS: Gabapentin 300 MG CAPSULE PO SCH (08:56)
[2018-11-20] MEDS: Apremilast [Otezla] 30 MG PO SCH (08:56)
[2018-11-20] MEDS: Aspirin Enteric Coated 81 MG Tablet PO SCH (08:56)
[2018-11-20] MEDS: Metoprolol XL (24 HR) Succ 50 MG TAB.ER.24H PO SCH (08:56)
[2018-11-20] MEDS: *HR* OxyCODONE Immed Rel 5 MG TABLET PO PRN (09:06)
[2018-11-20 11:21] VITALS: BP 108/71
== END 2018-11-20 15:20 | disposition home or self-care (01) ==
LOC: EMEROOARM 19:54 → 3BNU 19:54 → SUATTDRO 21:21 → 3BNU 22:03
PROVIDERS: ADMIT Pediatrics; ATTEND Internal Medicine

== ENCOUNTER 2020-01-29 15:15 | Observation (INO) ==
[2020-01-29 16:30] LABS: Basophils % 0.5 %; Hemoglobin 10.7 g/dL (11.5-15.4); Immature Granulocytes % 0.4 % (0-4)
[2020-01-29 16:32] LABS: Basophils # 0.1 K/mcL (0.0-0.2); Eosinophils # 0.2 K/mcL (0.0-0.6); Eosinophils % 1.2 %; Hematocrit 34.9 % (35.3-44.9); Immature Platelets 8.1 % (1.1-6.1); Lymphocytes # 1.3 K/mcL (0.6-4.6); Lymphocytes % 8.2 %; Mean Corpuscular HGB Conc 30.7 g/dL (31.6-35.5); Mean Corpuscular Hemoglobin 29.5 pg (28.0-33.3); Mean Corpuscular Volume 96.1 fL (83.0-100.0); Monocytes # 1.9 K/mcL (0.0-1.3); Monocytes % 11.5 %; Neutrophils # 12.8 K/mcL (1.6-8.9); Nucleated Red Blood Cells 0.1 /100 WBC (0); Platelet Count 280 K/mcL (140-400); Red Blood Count 3.63 M/mcL (3.82-4.97); Red Cell Distribution Width 24.5 % (11.5-14.5); Segmented Neutrophils % 78.2 %; White Blood Count 16.4 K/mcL (4.3-11.1)
[2020-01-29 16:33] LABS: Anisocytosis 2+ (Not Present); Platelet Estimate Normal (Normal)
[2020-01-29 16:38] LABS: INR 1.1; Prothrombin Time 12.9 Seconds (9.4-12.1)
[2020-01-29 16:40] LABS: Activated Partial Thrombo Time 28.9 Seconds (26.0-36.0)
[2020-01-29 16:51] LABS: BUN/Creatinine Ratio 25 (6-26); Blood Urea Nitrogen 13 mg/dL (8-23); Calcium 9.1 mg/dL (8.6-10.3); Carbon Dioxide 30 mEq/L (23-29); Chloride 101 mEq/L (98-107); Glucose 155 mg/dL (70-105); Osmolality,Calculated 283 (280-300); Potassium 3.7 mEq/L (3.5-5.1); Sodium 135 mEq/L (136-145); Troponin I < 0.03 ng/mL (< 0.04); eGFR For African Americans > 60 (> 60); eGFR For Non-African Americans > 60 (> 60)
[2020-01-29] MEDS ORDERED: Aspirin 325 MG TABLET PO ONE (17:24)
[2020-01-29] MEDS ORDERED: Naloxone 0.4 MG/ML INJ IVP PRN (19:35)
[2020-01-29] MEDS ORDERED: Nitroglycerin 0.4 MG TAB.SUBL SL PRN (19:47)
[2020-01-29] MEDS: *HR* HYDROmorphone 2 MG TABLET PO SCH (20:18)
[2020-01-29] MEDS: Gabapentin 300 MG CAPSULE PO SCH (20:18)
[2020-01-29] MEDS ORDERED: Magnesium Oxide 400 MG TABLET PO SCH (21:00)
[2020-01-30 05:20] LABS: BUN/Creatinine Ratio 24 (6-26); Blood Urea Nitrogen 12 mg/dL (8-23); Calcium 8.8 mg/dL (8.6-10.3); Carbon Dioxide 28 mEq/L (23-29); Chloride 104 mEq/L (98-107); Chol/HDL Ratio 2.1 (0-4.9); Cholesterol 111 mg/dL (< 200); Glucose 100 mg/dL (70-105); HDL Cholesterol 53 mg/dL (40-59); LDL Cholesterol,Calculated 51 mg/dL (< 100); Osmolality,Calculated 286 (280-300); Potassium 3.8 mEq/L (3.5-5.1); Sodium 138 mEq/L (136-145); Triglycerides 37 mg/dL (< 150); Troponin I < 0.03 ng/mL (< 0.04); eGFR For African Americans > 60 (> 60); eGFR For Non-African Americans > 60 (> 60)
[2020-01-30] MEDS: *HR* HYDROmorphone 2 MG TABLET PO SCH ×2 (05:35→13:34)
[2020-01-30] MEDS ORDERED: *HR* Heparin 5,000 UNIT/ML VIAL SQ SCH (06:00)
[2020-01-30] MEDS ORDERED: Regadenoson 0.4 MG/5 ML SYRINGE IVP ONE (06:13)
[2020-01-30] MEDS ORDERED: Metoprolol XL (24 HR) Succ 50 MG TAB.ER.24H PO SCH (09:00)
[2020-01-30] MEDS ORDERED: Aspirin Enteric Coated 81 MG Tablet PO SCH (09:00)
[2020-01-30] MEDS ORDERED: Magnesium Oxide 400 MG TABLET PO SCH (09:00)
[2020-01-30] MEDS: Gabapentin 300 MG CAPSULE PO SCH (10:13)
[2020-01-30 10:22] LABS: Hemoglobin 10.6 g/dL (11.5-15.4)
[2020-01-30 10:24] LABS: Basophils # 0.1 K/mcL (0.0-0.2); Basophils % 0.6 %; Eosinophils # 0.2 K/mcL (0.0-0.6); Eosinophils % 1.2 %; Hematocrit 33.6 % (35.3-44.9); Immature Granulocytes % 0.3 % (0-4); Immature Platelets 8.1 % (1.1-6.1); Lymphocytes # 1.2 K/mcL (0.6-4.6); Lymphocytes % 9.7 %; Mean Corpuscular HGB Conc 31.5 g/dL (31.6-35.5); Mean Corpuscular Hemoglobin 29.9 pg (28.0-33.3); Mean Corpuscular Volume 94.6 fL (83.0-100.0); Monocytes # 1.8 K/mcL (0.0-1.3); Platelet Count 255 K/mcL (140-400); Red Blood Count 3.55 M/mcL (3.82-4.97); Red Cell Distribution Width 24.7 % (11.5-14.5); Segmented Neutrophils % 74.2 %; White Blood Count 12.7 K/mcL (4.3-11.1)
[2020-01-30 10:26] LABS: Neutrophils # 9.4 K/mcL (1.6-8.9)
[2020-01-30] MEDS ORDERED: Isosorbide MONOnitrate (24 HR) 30 MG TAB.ER.24H PO SCH (10:45)
[2020-01-30 10:50] LABS: Poikilocytosis 1+ (Not Present)
[2020-01-30 10:51] LABS: Anisocytosis 2+ (Not Present); Ovalocytes 1+ (Not Present); Platelet Estimate Normal (Normal)
[2020-01-30 11:22] VITALS: BP 108/70
[2020-01-30 13:23] LABS: Bilirubin,Urine Negative (Negative); Blood,Urine Negative (Negative); Clarity,Urine Clear (Clear); Color,Urine Yellow (Yellow); Glucose,Urine (UA) Normal (Normal); Ketones,Urine Negative (Negative); Leukocyte Esterase,Urine Negative (Negative); Nitrite,Urine Negative (Negative); PH,Urine 6.5 pH Units (5.0-8.0); Protein,Urine Negative (Neg-Trace); Specific Gravity,Urine 1.012 (1.010-1.025); Urobilinogen,Urine Normal (Normal)
== END 2020-01-30 14:19 | disposition home or self-care (01) ==
LOC: 3BNU 15:15 → EMEROOARM 15:15 → SUATTDRO 17:53 → 3BNU 18:46
PROVIDERS: ADMIT Internal Medicine; ATTEND Internal Medicine

== ENCOUNTER 2020-09-25 21:25 | Inpatient (IN) ==
[2020-09-25] MEDS ORDERED: GI Cocktail 40 ML EACH PO ONE (21:58)
[2020-09-25] MEDS ORDERED: Isovue-370 500 ML BOTTLE IVP ONE (22:00)
[2020-09-25] MEDS ORDERED: Metoclopramide 10 MG/2 ML VIAL IVP STA (22:01)
[2020-09-25 22:07] LABS: Hemoglobin 9.6 g/dL (11.5-15.4)
[2020-09-25 22:09] LABS: Basophils # 0.1 K/mcL (0.0-0.2); Basophils % 0.6 %; Eosinophils # 0.2 K/mcL (0.0-0.6); Eosinophils % 1.3 %; Hematocrit 30.8 % (35.3-44.9); Immature Granulocytes % 0.5 % (0-4); Immature Platelets 6.8 % (1.1-6.1); Lymphocytes % 8.8 %; Mean Corpuscular HGB Conc 31.2 g/dL (31.6-35.5); Mean Corpuscular Volume 96.3 fL (83.0-100.0); Monocytes # 1.3 K/mcL (0.0-1.3); Monocytes % 11.3 %; Neutrophils # 8.7 K/mcL (1.6-8.9); Platelet Count 311 K/mcL (140-400); Red Cell Distribution Width 23.7 % (11.5-14.5); Segmented Neutrophils % 77.5 %; White Blood Count 11.2 K/mcL (4.3-11.1)
[2020-09-25 22:15] LABS: INR 1.2; Prothrombin Time 13.3 Seconds (9.4-12.1)
[2020-09-25 22:28] LABS: Alanine Aminotransferase 75 Units/L (7-52); Albumin 4.4 g/dL (3.5-5.7); Albumin/Globulin Ratio 1.6 (1.1-2.2); Alkaline Phosphatase 123 Units/L (34-104); Aspartate Amino Transferase 163 Units/L (13-39); BUN/Creatinine Ratio 15 (6-26); Bilirubin,Direct 0.7 mg/dL (0.0-0.2); Bilirubin,Indirect 0.6 mg/dL (0.0-1.0); Bilirubin,Total 1.3 mg/dL (0.3-1.0); Blood Urea Nitrogen 9 mg/dL (8-23); Calcium 9.5 mg/dL (8.6-10.3); Carbon Dioxide 29 mEq/L (23-29); Chloride 102 mEq/L (98-107); Globulin 2.8 g/dL (2.4-3.5); Glucose 156 mg/dL (70-105); Lipase 15 Units/L (11-82); Osmolality,Calculated 286 (280-300); Potassium 3.7 mEq/L (3.5-5.1); Sodium 137 mEq/L (136-145); Total Protein 7.2 g/dL (6.4-8.9); Troponin I < 0.03 ng/mL (< 0.04); eGFR For African Americans > 60 (> 60); eGFR For Non-African Americans > 60 (> 60)
[2020-09-25 22:34] LABS: Hypochromasia Present (Not Present); Microcytosis Present (Not Present); Poikilocytosis 2+ (Not Present); Tear Drop Cells 1+ (Not Present)
[2020-09-25 22:35] LABS: Anisocytosis 1+ (Not Present); Ovalocytes 2+ (Not Present); Platelet Estimate Normal (Normal)
[2020-09-26] MEDS ORDERED: Metoclopramide 10 MG/2 ML VIAL IVP PRN (03:39)
[2020-09-26] MEDS ORDERED: 0.9 % Sodium Chloride 1,000 ML IVC SCH (03:45)
[2020-09-26] MEDS ORDERED: Naloxone 0.4 MG/ML INJ IVP PRN (03:45)
[2020-09-26] MEDS ORDERED: Perflutren Lipid Microsphere 1.3 ML in 0.9 % Sodium Chloride 8.7 ML IVP PRN (03:54)
[2020-09-26 04:39] LABS: Hematocrit 31.8 % (35.3-44.9); Hemoglobin 10.1 g/dL (11.5-15.4); Immature Platelets 7.7 % (1.1-6.1); Mean Corpuscular HGB Conc 31.8 g/dL (31.6-35.5); Mean Corpuscular Hemoglobin 30.8 pg (28.0-33.3); Platelet Count 306 K/mcL (140-400); Red Blood Count 3.28 M/mcL (3.82-4.97); Red Cell Distribution Width 23.7 % (11.5-14.5); White Blood Count 11.2 K/mcL (4.3-11.1)
[2020-09-26] MEDS: Piperacillin/Tazobactam 3.375 GM in 0.9 % Sodium Chloride Mini Bag 100 ML IVPB SCH ×3 (04:51→20:25)
[2020-09-26 04:59] LABS: % Iron Saturation 54 % (15-50); Iron 169 mcg/dL (50-170); Transferrin 223 mg/dL (203-362)
[2020-09-26 05:00] LABS: BUN/Creatinine Ratio 16 (6-26); Blood Urea Nitrogen 9 mg/dL (8-23); Calcium 9.3 mg/dL (8.6-10.3); Carbon Dioxide 27 mEq/L (23-29); Chloride 100 mEq/L (98-107); Chol/HDL Ratio 2.3 (0-4.9); Cholesterol 116 mg/dL (< 200); Glucose 111 mg/dL (70-105); HDL Cholesterol 50 mg/dL (40-59); LDL Cholesterol,Calculated 55 mg/dL (< 100); Magnesium 1.8 mg/dL (1.6-2.6); Osmolality,Calculated 279 (280-300); Potassium 4.2 mEq/L (3.5-5.1); Sodium 135 mEq/L (136-145); Triglycerides 54 mg/dL (< 150); Troponin I < 0.03 ng/mL (< 0.04); eGFR For African Americans > 60 (> 60); eGFR For Non-African Americans > 60 (> 60)
[2020-09-26] MEDS: Pantoprazole 40 MG VIAL IVP SCH ×2 (05:08→16:10)
[2020-09-26 05:18] LABS: Ferritin 365 ng/mL (10-120)
[2020-09-26 05:24] LABS: Folate > 22.3 ng/mL (3.0-16.0); Vitamin B12 > 1500 pg/mL (250-1100); Vitamin D 25 Hydroxy 61 ng/mL (30-80)
[2020-09-26] MEDS ORDERED: Nitroglycerin 0.4 MG TAB.SUBL SL PRN (05:51)
[2020-09-26] MEDS ORDERED: *HR* Metoprolol 5 MG/5 ML VIAL IVP ONE (06:54)
[2020-09-26 10:21] LABS: Troponin I < 0.03 ng/mL (< 0.04)
[2020-09-26 11:18] LABS: Estimated Average Glucose 117 mg/dl; Hemoglobin A1C 5.7 %
[2020-09-26] MEDS ORDERED: Metoprolol XL (24 HR) Succ 50 MG TAB.ER.24H PO SCH (14:30)
[2020-09-26 15:48] LABS: Bilirubin,Urine Negative (Negative); Blood,Urine Negative (Negative); Clarity,Urine Clear (Clear); Color,Urine Yellow (Yellow); Glucose,Urine (UA) Normal (Normal); Ketones,Urine Negative (Negative); Leukocyte Esterase,Urine Negative (Negative); Nitrite,Urine Negative (Negative); PH,Urine 7.5 pH Units (5.0-8.0); Protein,Urine Negative (Neg-Trace); Specific Gravity,Urine 1.017 (1.010-1.025); Urobilinogen,Urine Normal (Normal)
[2020-09-26 17:58] LABS: Klebsiella pneumoniae by PCR DETECTED (Not Detect)
[2020-09-26 17:59] LABS: Acinetobacter baumannii by PCR Not Detected (Not Detect); Candida albicans by PCR Not Detected (Not Detect); Candida glabrata by PCR Not Detected (Not Detect); Candida krusei by PCR Not Detected (Not Detect); Candida parapsilosis by PCR Not Detected (Not Detect); Candida tropicalis by PCR Not Detected (Not Detect); Enterobacter cloacae Cmplx PCR Not Detected (Not Detect); Enterococcus by PCR Not Detected (Not Detect); Escherichia coli by PCR Not Detected (Not Detect); Klebsiella oxytoca by PCR Not Detected (Not Detect); Proteus by PCR Not Detected (Not Detect); Pseudomonas aeruginosa by PCR Not Detected (Not Detect); Serratia marcescens by PCR Not Detected (Not Detect); Staphylococcus aureus by PCR Not Detected (Not Detect); Staphylococcus by PCR Not Detected (Not Detect); Streptococcus agalactiae(B)PCR Not Detected (Not Detect); Streptococcus by PCR Not Detected (Not Detect); Streptococcus pneumoniae PCR Not Detected (Not Detect); Streptococcus pyogenes (A) PCR Not Detected (Not Detect)
[2020-09-26] MEDS ORDERED: Ipratropium Neb 0.5 MG NEBULIZER IH PRN (18:03)
[2020-09-26] MEDS: Gabapentin 300 MG CAPSULE PO SCH (20:29)
[2020-09-27] MEDS: Piperacillin/Tazobactam 3.375 GM in 0.9 % Sodium Chloride Mini Bag 100 ML IVPB SCH ×3 (04:20→20:28)
[2020-09-27 06:24] LABS: Red Blood Count 2.81 M/mcL (3.82-4.97)
[2020-09-27 06:26] LABS: Hematocrit 26.9 % (35.3-44.9); Hemoglobin 8.6 g/dL (11.5-15.4); Immature Platelets 8.2 % (1.1-6.1); Mean Corpuscular Hemoglobin 30.6 pg (28.0-33.3); Mean Corpuscular Volume 95.7 fL (83.0-100.0); Platelet Count 245 K/mcL (140-400); Red Cell Distribution Width 24.2 % (11.5-14.5); White Blood Count 7.4 K/mcL (4.3-11.1)
[2020-09-27 06:45] LABS: Alanine Aminotransferase 253 Units/L (7-52); Albumin 3.7 g/dL (3.5-5.7); Albumin/Globulin Ratio 1.5 (1.1-2.2); Alkaline Phosphatase 104 Units/L (34-104); Aspartate Amino Transferase 232 Units/L (13-39); BUN/Creatinine Ratio 16 (6-26); Blood Urea Nitrogen 9 mg/dL (8-23); Calcium 8.4 mg/dL (8.6-10.3); Carbon Dioxide 25 mEq/L (23-29); Chloride 107 mEq/L (98-107); Globulin 2.4 g/dL (2.4-3.5); Glucose 91 mg/dL (70-105); Osmolality,Calculated 286 (280-300); Potassium 3.2 mEq/L (3.5-5.1); Sodium 139 mEq/L (136-145); Total Protein 6.1 g/dL (6.4-8.9); eGFR For African Americans > 60 (> 60); eGFR For Non-African Americans > 60 (> 60)
[2020-09-27] MEDS ORDERED: Metoprolol XL (24 HR) Succ 50 MG TAB.ER.24H PO SCH ×2 (06:45→09:00)
[2020-09-27] MEDS: Pantoprazole 40 MG VIAL IVP SCH (06:45)
[2020-09-27] MEDS ORDERED: Lidocaine -MPF 4% 5 ML AMPUL ONE (07:11)
[2020-09-27] MEDS ORDERED: Lidocaine -MPF 2% 2 ML VIAL ONE (07:11)
[2020-09-27] MEDS ORDERED: *HR* Rocuronium Bromide 50 MG/5 ML VIAL ONE (07:11)
[2020-09-27] MEDS ORDERED: *HR* Succinylcholine 200 MG/10 ML VIAL IVP ONE (07:11)
[2020-09-27] MEDS ORDERED: Ondansetron 4 MG/2 ML VIAL ONE (07:11)
[2020-09-27] MEDS ORDERED: *HR* FentaNYL (PF) 100 MCG/2 ML VIAL ONE (07:11)
[2020-09-27] MEDS ORDERED: *HR* Propofol 200 MG/20 ML VIAL IVP ONE (07:11)
[2020-09-27] MEDS ORDERED: *HR* HYDROmorphone PF 0.5 MG/0.5 ML SYRINGE IVP PRN (07:58)
[2020-09-27] MEDS ORDERED: *HR* OxyCODONE Immed Rel 5 MG TABLET PO PRN ×2 (07:58→11:17)
[2020-09-27] MEDS ORDERED: Ondansetron 4 MG/2 ML VIAL IVP PRN (07:58)
[2020-09-27] MEDS ORDERED: Isovue-300 50ML VIAL ONE (08:53)
[2020-09-27] MEDS ORDERED: EPHEDrine 50 MG/ML VIAL ONE (08:57)
[2020-09-27] MEDS ORDERED: Sugammadex Sodium 200 MG/2 ML VIAL IV ONE (09:31)
[2020-09-27] MEDS ORDERED: Ketorolac 30 MG/ML VIAL ONE (09:43)
[2020-09-27] MEDS ORDERED: Metoclopramide 10 MG/2 ML VIAL IVP PRN (11:17)
[2020-09-27] MEDS ORDERED: Naloxone 0.4 MG/ML INJ IVP PRN (11:17)
[2020-09-27] MEDS ORDERED: Ipratropium Neb 0.5 MG NEBULIZER IH PRN (11:17)
[2020-09-27] MEDS ORDERED: Nitroglycerin 0.4 MG TAB.SUBL SL PRN (11:17)
[2020-09-27] MEDS ORDERED: Perflutren Lipid Microsphere 1.3 ML in 0.9 % Sodium Chloride 8.7 ML IVP PRN (11:17)
[2020-09-27] MEDS: Gabapentin 300 MG CAPSULE PO SCH ×2 (12:43→20:27)
[2020-09-27] MEDS: Acetaminophen IV 1,000 MG/100 ML BAG IVPB SCH ×3 (13:51→23:44)
[2020-09-27] MEDS ORDERED: Pantoprazole 40 MG VIAL IVP SCH (18:00)
[2020-09-28] MEDS: Acetaminophen IV 1,000 MG/100 ML BAG IVPB SCH (05:28)
[2020-09-28] MEDS: Piperacillin/Tazobactam 3.375 GM in 0.9 % Sodium Chloride Mini Bag 100 ML IVPB SCH (05:29)
[2020-09-28] MEDS: Gabapentin 300 MG CAPSULE PO SCH (07:57)
[2020-09-28] MEDS ORDERED: Metoprolol XL (24 HR) Succ 50 MG TAB.ER.24H PO SCH (09:00)
[2020-09-28 10:18] LABS: Hematocrit 25.9 % (35.3-44.9); Hemoglobin 8.2 g/dL (11.5-15.4); Immature Platelets 10.3 % (1.1-6.1); Mean Corpuscular HGB Conc 31.7 g/dL (31.6-35.5); Mean Corpuscular Hemoglobin 30.4 pg (28.0-33.3); Mean Corpuscular Volume 95.9 fL (83.0-100.0); Platelet Count 258 K/mcL (140-400); Red Cell Distribution Width 24.3 % (11.5-14.5); White Blood Count 13.1 K/mcL (4.3-11.1)
[2020-09-28 10:30] LABS: Alanine Aminotransferase 188 Units/L (7-52); Albumin 3.8 g/dL (3.5-5.7); Albumin/Globulin Ratio 1.6 (1.1-2.2); Alkaline Phosphatase 81 Units/L (34-104); Aspartate Amino Transferase 133 Units/L (13-39); BUN/Creatinine Ratio 18 (6-26); Bilirubin,Total 1.5 mg/dL (0.3-1.0); Blood Urea Nitrogen 10 mg/dL (8-23); Calcium 8.3 mg/dL (8.6-10.3); Carbon Dioxide 25 mEq/L (23-29); Chloride 106 mEq/L (98-107); Globulin 2.4 g/dL (2.4-3.5); Glucose 133 mg/dL (70-105); Osmolality,Calculated 287 (280-300); Potassium 3.6 mEq/L (3.5-5.1); Sodium 138 mEq/L (136-145); Total Protein 6.2 g/dL (6.4-8.9); eGFR For African Americans > 60 (> 60); eGFR For Non-African Americans > 60 (> 60)
[2020-09-28 11:38] VITALS: BP 102/64
== END 2020-09-28 12:15 | disposition home or self-care (01) | DRG 418 ==
LOC: 3ANU 21:25 → EMEROOARM 21:25 → SUATTDRO 09-26 00:47 → 3ANU 09-26 01:17
PROVIDERS: ADMIT Internal Medicine; ATTEND Internal Medicine

== ENCOUNTER 2021-01-16 15:43 | Observation (INO) ==
[2021-01-16] MEDS ORDERED: 0.9 % Sodium Chloride 1,000 ML IVC ONE (18:49)
[2021-01-16 19:31] LABS: INR 1.1; Prothrombin Time 12.2 Seconds (9.4-12.1)
[2021-01-16 19:33] LABS: Activated Partial Thrombo Time 33.7 Seconds (26.0-36.0)
[2021-01-16 19:37] LABS: Hemoglobin 10.5 g/dL (11.5-15.4)
[2021-01-16 19:39] LABS: Basophils # 0.1 K/mcL (0.0-0.2); Basophils % 1.1 %; Eosinophils # 0.4 K/mcL (0.0-0.6); Eosinophils % 4.4 %; Hematocrit 33.4 % (35.3-44.9); Immature Granulocytes % 0.2 % (0-4); Immature Platelets 8.1 % (1.1-6.1); Lymphocytes # 1.5 K/mcL (0.6-4.6); Lymphocytes % 18.4 %; Mean Corpuscular HGB Conc 31.4 g/dL (31.6-35.5); Mean Corpuscular Hemoglobin 30.4 pg (28.0-33.3); Mean Corpuscular Volume 96.8 fL (83.0-100.0); Monocytes # 1.1 K/mcL (0.0-1.3); Monocytes % 13.4 %; Platelet Count 299 K/mcL (140-400); Red Blood Count 3.45 M/mcL (3.82-4.97); Red Cell Distribution Width 22.9 % (11.5-14.5); Segmented Neutrophils % 62.5 %
[2021-01-16 19:53] LABS: BUN/Creatinine Ratio 20 (6-26); Blood Urea Nitrogen 12 mg/dL (8-23); Carbon Dioxide 29 mEq/L (23-29); Chloride 102 mEq/L (98-107); Creatine Kinase 35 Units/L (30-223); Ethanol < 10 mg/dL (Less than 10); Glucose 89 mg/dL (70-105); Osmolality,Calculated 285 (280-300); Potassium 3.9 mEq/L (3.5-5.1); Sodium 138 mEq/L (136-145); Troponin I < 0.03 ng/mL (< 0.04); eGFR For African Americans > 60 (> 60); eGFR For Non-African Americans > 60 (> 60)
[2021-01-16 22:59] LABS: Bacteria,Urine Few per hpf (None-Few); Bilirubin,Urine Negative (Negative); Blood,Urine Negative (Negative); Clarity,Urine Clear (Clear); Color,Urine Colorless (Yellow); Glucose,Urine (UA) Normal (Normal); Ketones,Urine Negative (Negative); Leukocyte Esterase,Urine Trace (Negative); Nitrite,Urine Negative (Negative); PH,Urine 6.5 pH Units (5.0-8.0); Protein,Urine Negative (Neg-Trace); RBC,Urine 0-3 per hpf (0-3); Specific Gravity,Urine 1.007 (1.010-1.025); Squamous Epithelial Cell,Urine Few per hpf (None-Few); Urobilinogen,Urine Normal (Normal); WBC,Urine 0-3 per hpf (0-3)
[2021-01-16 23:09] LABS: Amphetamine Screen,Urine Negative ng/mL (Cutoff=1000); Barbiturate Screen,Urine Negative ng/mL (Cutoff=200); Benzodiazepines Screen,Urine Negative ng/mL (Cutoff=200); Cannabinoid Screen,Urine Negative ng/mL (Cutoff = 50); Cocaine Screen,Urine Negative ng/mL (Cutoff= 300); Opiate Screen,Urine Negative ng/mL (Cutoff=300); Phencyclidine Screen,Urine Negative ng/mL (Cutoff=25)
[2021-01-17] MEDS ORDERED: Naloxone 0.4 MG/ML INJ IVP PRN (00:17)
[2021-01-17] MEDS ORDERED: Acetaminophen 325 MG TABLET PO PRN (00:17)
[2021-01-17] MEDS ORDERED: Ondansetron 4 MG/2 ML VIAL IVP PRN (00:17)
[2021-01-17] MEDS ORDERED: Melatonin 3 MG TABLET PO PRN (00:17)
[2021-01-17] MEDS ORDERED: Perflutren Lipid Microsphere 1.3 ML in 0.9 % Sodium Chloride 8.7 ML IVP PRN (00:18)
[2021-01-17] MEDS: Aspirin Enteric Coated 325 MG Tablet PO SCH ×2 (01:52→09:03)
[2021-01-17] MEDS ORDERED: Isovue-370 500 ML BOTTLE IVP ONE (01:58)
[2021-01-17 02:36] LABS: BUN/Creatinine Ratio 20 (6-26); Blood Urea Nitrogen 11 mg/dL (8-23); Calcium 8.8 mg/dL (8.6-10.3); Carbon Dioxide 26 mEq/L (23-29); Chloride 106 mEq/L (98-107); Chol/HDL Ratio 2.6 (0-4.9); Cholesterol 111 mg/dL (< 200); Glucose 113 mg/dL (70-105); HDL Cholesterol 43 mg/dL (40-59); LDL Cholesterol,Calculated 58 mg/dL (< 100); Magnesium 2.2 mg/dL (1.6-2.6); Osmolality,Calculated 288 (280-300); Potassium 3.9 mEq/L (3.5-5.1); Sodium 139 mEq/L (136-145); Triglycerides 49 mg/dL (< 150); eGFR For African Americans > 60 (> 60); eGFR For Non-African Americans > 60 (> 60)
[2021-01-17 02:49] LABS: Thyroid Stimulating Hormone 1.291 mcIU/mL (0.340-5.600)
[2021-01-17 02:51] LABS: Hematocrit 31.7 % (35.3-44.9)
[2021-01-17 02:53] LABS: Immature Platelets 6.7 % (1.1-6.1); Mean Corpuscular HGB Conc 31.5 g/dL (31.6-35.5); Mean Corpuscular Hemoglobin 30.2 pg (28.0-33.3); Mean Corpuscular Volume 95.8 fL (83.0-100.0); Platelet Count 300 K/mcL (140-400); Red Blood Count 3.31 M/mcL (3.82-4.97); Red Cell Distribution Width 23.5 % (11.5-14.5); White Blood Count 8.6 K/mcL (4.3-11.1)
[2021-01-17 03:03] LABS: Folate > 22.3 ng/mL (3.0-16.0); Vitamin B12 731 pg/mL (250-1100); Vitamin D 25 Hydroxy 59 ng/mL (30-80)
[2021-01-17 03:05] LABS: INR 1.1; Prothrombin Time 11.9 Seconds (9.4-12.1)
[2021-01-17 03:08] LABS: Activated Partial Thrombo Time 32.7 Seconds (26.0-36.0)
[2021-01-17] MEDS: levoFLOXacin 750 MG/150 ML 750 MG/150 ML BAG IVPB SCH (03:08)
[2021-01-17] MEDS: Aspirin Enteric Coated 81 MG Tablet PO SCH (09:07)
[2021-01-17 14:24] LABS: Estimated Average Glucose 126 mg/dl
[2021-01-17] MEDS ORDERED: Furosemide 20 MG TABLET PO PRN (16:03)
[2021-01-17] MEDS: Metoprolol XL (24 HR) Succ 50 MG TAB.ER.24H PO SCH (17:19)
[2021-01-17] MEDS ORDERED: Fluticasone Propionate Nasal 50 MCG/SPRAY BOTTLE NS SCH (18:00)
[2021-01-17] MEDS ORDERED: MOM Conc 10 ML UD.LIQ PO SCH (21:00)
[2021-01-17] MEDS: *HR* OxyCODONE Immed Rel 5 MG TABLET PO SCH (22:56)
[2021-01-17] MEDS: Gabapentin 300 MG CAPSULE PO SCH (22:56)
[2021-01-18 02:13] LABS: Hematocrit 30.8 % (35.3-44.9); Hemoglobin 9.5 g/dL (11.5-15.4); Immature Platelets 7.5 % (1.1-6.1); Mean Corpuscular HGB Conc 30.8 g/dL (31.6-35.5); Mean Corpuscular Hemoglobin 29.4 pg (28.0-33.3); Mean Corpuscular Volume 95.4 fL (83.0-100.0); Platelet Count 280 K/mcL (140-400); Red Blood Count 3.23 M/mcL (3.82-4.97); White Blood Count 8.5 K/mcL (4.3-11.1)
[2021-01-18 02:30] LABS: Blood Urea Nitrogen 8 mg/dL (8-23); Calcium 8.4 mg/dL (8.6-10.3); Carbon Dioxide 24 mEq/L (23-29); Chloride 109 mEq/L (98-107); Glucose 100 mg/dL (70-105); Osmolality,Calculated 286 (280-300); Potassium 3.7 mEq/L (3.5-5.1); Sodium 139 mEq/L (136-145)
[2021-01-18 03:18] LABS: BUN/Creatinine Ratio 15 (6-26); eGFR For African Americans > 60 (> 60); eGFR For Non-African Americans > 60 (> 60)
[2021-01-18 08:01] VITALS: BP 103/66; PULSE 85; TEMP 98; O2SAT 97
[2021-01-18] MEDS ORDERED: Multivit/Ca/Min/Fe/FA 1 TAB TABLET PO SCH (09:00)
[2021-01-18] MEDS ORDERED: Loratadine 10 MG TABLET PO SCH (09:00)
[2021-01-18] MEDS ORDERED: NON-FORMULARY MEDICATION 1 EACH EACH (Pantoprazole Sodium [Protonix] 40 MG Tablet.Dr) PO SCH (09:00)
[2021-01-18] MEDS: Gabapentin 300 MG CAPSULE PO SCH (09:19)
[2021-01-18] MEDS: Metoprolol XL (24 HR) Succ 50 MG TAB.ER.24H PO SCH (09:19)
[2021-01-18] MEDS: levoFLOXacin 750 MG/150 ML 750 MG/150 ML BAG IVPB SCH (09:19)
[2021-01-18] MEDS: *HR* OxyCODONE Immed Rel 5 MG TABLET PO SCH (09:19)
[2021-01-18] MEDS: Aspirin Enteric Coated 81 MG Tablet PO SCH (09:19)
== END 2021-01-18 11:55 | disposition home or self-care (01) ==
LOC: 3BNU 15:43 → EMEROOARM 15:43 → SUATTDRO 01-17 00:43 → 3BNU 01-17 01:21
PROVIDERS: ADMIT Internal Medicine; ATTEND Internal Medicine